=== PATIENT | male | born 1965 | race Caucasian/White ===

== ENCOUNTER 2017-08-11 10:25 | Observation (INO) | END 2017-08-12 10:25 | disposition home or self-care (01) ==

== ENCOUNTER 2018-03-22 16:02 | Emergency (ER) | END 2018-03-22 18:02 | disposition home or self-care (01) ==

== ENCOUNTER 2018-04-06 08:00 | Inpatient (IN) | payer OTHER ==
[2018-03-31 16:07] VITALS: BMI 36.1
[~2018-04-06] VITALS: Ht 170.2 cm; Wt 106.0 kg
[2018-04-06] VITALS (18 sets, daily range): BP systolic 106–133; BP diastolic 58–93; PULSE 78–109; RESP 15–22; Ht 170.2 cm; Wt 106.0 kg
--- NOTE | 2018-04-06 05:39 | HPN ---
Date/Time of Note Date/Time of Note DATE: 04/06/18 TIME: 05:39 Interval H&P Admission Note Pt. seen H&P reviewed: No system changes CLAUDETTE HICKEY MD Apr 06, 2018 05:39
--- NOTE | 2018-04-06 05:43 | OPR ---
Date/Time of Note Date/Time of Note DATE: 04/06/18 TIME: 05:40 Operative Report Procedure Date: Apr 06, 2018 Preoperative Diagnosis Infected right total shoulder Postoperative Diagnosis Infected right reverse total shoulder replacement Operation/Procedure Performed Revision of right reverse total shoulder replacement to hemiarthroplasty Surgeon see signature line Wagon Person Yevgeniy Singh DO Second Wagon Person: CAREN HUITRON PA-C Anesthesia Type: general Estimated Blood Loss: 150 - 200 ml's Transfusion none Specimen Multiple cultures obtained Grafts/Implants See body of op note Complications none Pt Condition Post Procedure: stable Disposition: PACU Procedure Description LABOR TRAINING MANAGER SURGEON: Yevgeniy Singh DO was asked to be present for this case at my request. Assistance was necessary as a result of the highly technical nature of this operation. When performing an open total shoulder replacement, it is critical to have a trained dental hygiene administrative assistant who is an expert in handling the extremity and assisting the surgeon in tasks such as manipulation of the arm, protection of the neurovascular structures and positioning the implants. This assistance cannot be performed by a plumbing service technician, as it is considered an integral part of the procedure and he should be compensated for their time. PROCEDURE IN DETAIL: Following the administration of general anesthesia supp lemented with a peripheral nerve block for postoperative pain control, the patient was examined under anesthesia. Examination of the right shoulder revealed severe significant swelling and edema around the incision. The prior small punctate area which had been draining was then explored. Significant purulent material was seen to emanate from the wound. The patient was then placed in the beach chair position. Sterile prep and drape was then undertaken. The prior deltopectoral incision was then carried through the interval exposing the conjoined tendon and retracting it medially. The components were intact. However, there was significant purulence throughout the wound. The humeral component was then removed using a combination of osteotomes and elevators. The humeral canal remained intact. The humerus was retracted and the glenoid was exposed . The glenoid component was then removed and an extensive debridement of the area undertaken. With regards to the remaining glenoid bone stock, is reasonable with no loosening. The humerus was then reamed and prepared for a hemiarthroplasty component which was fashioned using a small humeral component that was covered with antibiotic impregnated cement. Following cement hardening and positioning of the humeral component in approximately 30 degrees of retroversion the arm was taken through a range of motion and reasonable stability was noted. The joint was then thoroughly irrigated, the deep tissues were approximated using #1 suture followed by closure of the deep layer using 2-0 Monocryl. The skin was closed using 4-0 Monocryl suture, and a Prenio dressing. An Ultrasling was then applied. The patient was awakened and transported to the recovery room in stable condition. Estimated blood loss for this procedure was 200 cc. Radiographs will be obtained in the recovery room. CLAUDETTE HICKEY MD Apr 06, 2018 05:43
[~2018-04-06 08:00] MED LIST: BENA20TA4 PO; DESFLURANE 15 MIN ONE; DOXY100T21 PO; EPHEDrine SULFATE 50 MG/5 ML SYG ONE; HYDR25TA6 PO; MELO15TA30 PO; SIMV20TA PO
[2018-04-06] MEDS ORDERED: TRANEXAMIC ACID 1,000 MG in DEXTROSE 5% 100 ML IVPB ONE (09:00)
[2018-04-06] MEDS ORDERED: DEXAMETHASONE 1 MG TAB PO ONE (09:00)
[2018-04-06] MEDS ORDERED: BUPIVACAINE 0.5% (SDV) 30 ML, morphine SULFATE (PF) 8 MG, EPINEPHrine 0.3 MG, KETOROLAC... IRR SCH ×7 (09:00)
[2018-04-06] MEDS ORDERED: GABAPENTIN 300 MG CAP PO ONE (09:00)
[2018-04-06] MEDS ORDERED: VANCOMYCIN 1 GM (PMX) 250 ML IVPB ONE (09:00)
[2018-04-06] MEDS ORDERED: OMEP20CA16 PO (09:08)
[2018-04-06] MEDS ORDERED: LORA10TA3 PO (09:08)
[2018-04-06] MEDS: LACTATED RINGER'S 1,000 ML IV* SCH (09:46)
[2018-04-06] MEDS ORDERED: CEFAZOLIN 1 GM INJ ONE (10:15)
[2018-04-06] MEDS ORDERED: MIDAZOLAM 1 MG/ML 2 ML INJ ONE ×2 (10:15→10:16)
[2018-04-06] MEDS ORDERED: ROCURONIUM 50 MG INJ ONE (10:15)
[2018-04-06] MEDS ORDERED: PROPOFOL 20 ML ONE (10:15)
[2018-04-06] MEDS ORDERED: HYDROmorphONE 2 MG/ML SYG ONE (10:15)
[2018-04-06] MEDS ORDERED: ROPIVACAINE 0.5 % 30 ML VIAL ONE (10:16)
--- NOTE | 2018-04-06 11:06 | PREAC ---
Date/Time of Note Date/Time of Note DATE: 04/06/18 TIME: 11:03 Anesthesia Eval and Record Evaluation Time Pre-Procedure Interview DATE: 04/06/18 TIME: 11:03 Age 52 Sex male NPO: 8 hrs Preoperative diagnosis Right Shoulder Pain and mechanical complication s/p shoulder replacement Planned procedure Right Shoulder Revision of Reverse Total Shoulder with Possible conversion to Hemiarthroplasty Past Medical History Past Medical History: Includes Cardio: HTN, Dyslipidemia Pulm: Sleep Apnea, Other (uses CPAP at home) Musculoskeletal: Osteoarthritis GI: Obesity Surgery & Anesthesia Issues No known issue Meds Anticoagulation: No Beta Saran within 24 hr: No Reason Beta Saran not given: Pt. not on B-Saran Reported Medications Omeprazole* (Omeprazole*) 20 Mg Capsule.dr, 20 MG PO DAILY, #30 CAP 04/06/18 Loratadine* (Loratadine*) 10 Mg Tablet, 10 MG PO DAILY, #30 TAB 04/06/18 Simvastatin* (Zocor*) 20 Mg Tablet, 20 MG PO QHS, #30 TAB 08/11/17 Benazepril Hcl* (Benazepril Hcl*) 20 Mg Tablet, 20 MG PO DAILY, #30 TAB 08/11/17 Hydrochlorothiazide* (Hydrochlorothiazide*) 25 Mg Tab, 25 MG PO DAILY, #30 TAB 08/11/17 Discontinued Reported Medications Meloxicam* (Mobic*) 15 Mg Tablet, 15 MG PO DAILY, #30 TAB 08/11/17 Doxycycline Monohydrate* (Doxycycline Monohydrate*) 100 Mg Tablet, 100 MG PO BID, TAB STARTED 08-09-17 FOR 5 DAYS 08/11/17 Current Medications Bupivacaine HCl/ Morphine Sulfate/ Epinephrine/ Ketorolac Tromethamine/ Clonidine/Sodium Chloride/ Vancomycin HCl INTRA-OP IRR ; Start 04/06/18 at 09:00 Lactated Ringer's 1,000 ml @ 20 mls/hr Q24H IV* Last administered on 04/06/18at 09:46; Admin Dose 20 MLS/HR; Start 04/06/18 at 10:00; Stop 04/08/18 at 11:59 Meds reviewed: Yes Allergies Coded Allergies: Penicillins (Verified Allergy, Unknown, 04/06/18) Allergies Reviewed: Yes Labs/Studies Labs Reviewed: Reviewed by anesthesiologist test: N/A Studies: ECG (NSR), CXR (n/a) Pre-procedure Exam Last vitals Vital Signs Date Temp Pulse Resp B/P (MAP) Pulse Ox O2 O2 Flow FiO2 Time Delivery Rate 04/06/18 98.9 82 18 130/93 96 10:23 (105) Airway: Adequate mouth opening, Adequate thyromental dist Mallampati: Mallampati II Teeth: Normal Lung: Normal Heart: Normal ASA Physical Status ASA physical status: 3 Emergency: None Planned Anesthetic General/MAC: ETT Nerve block: Brachial plexus (right) Planned Pain Management Single shot nerve block, Parenteral pain med Pre-operative Attestations Prior to commencing anesthesia and surgery, the patient was re-evaluated, there was verification of: *The patient's identity *The results of appropriate recent lab work and preoperative vital signs *The above evaluation not changing prior to induction *Anesthetic plan, risk benefits, alternative and complications discussed with patient/family; questions answered; patient/family understands, accepts and wishes to proceed. KENNY MESA MD Apr 06, 2018 11:06
[2018-04-06] MEDS ORDERED: THROMBIN 5000 UNIT VIAL ONE (11:07)
[2018-04-06] MEDS ORDERED: BUPIVACAINE 0.5%/EPI (SDV) 30 ML INJ ONE (11:07)
[2018-04-06] MEDS ORDERED: POLYMYXIN/BACITRACIN 1L IRRIG ONE (11:07)
[2018-04-06] MEDS ORDERED: CA CHLORIDE 10% 10 ML SYRINGE ONE (11:07)
[2018-04-06] MEDS ORDERED: EPHEDrine SULFATE 50 MG/5 ML SYG IV PRN (11:30)
[2018-04-06] MEDS ORDERED: DIPHENHYDRAMINE 50 MG INJ IV PRN (11:30)
[2018-04-06] MEDS ORDERED: POLYMYXIN/BACITRACIN 1L IRRIG IRR ONE (11:30)
[2018-04-06] MEDS ORDERED: ONDANSETRON 4 MG INJ IV PRN ×2 (11:30→14:00)
[2018-04-06] MEDS ORDERED: LABETALOL HCL 20MG INJ IV PRN (11:30)
[2018-04-06] MEDS ORDERED: FENTAnyl 50 MCG/ML VIAL IV PRN ×3 (11:30)
[2018-04-06] MEDS ORDERED: METOCLOPRAMIDE 10 MG INJ IV PRN (11:30)
[2018-04-06] MEDS ORDERED: hydrALAzine 20 MG INJ IV PRN (11:30)
[2018-04-06] MEDS ORDERED: MEPERIDINE 25 MG INJ IV PRN (11:30)
[2018-04-06] MEDS ORDERED: HYDROmorphONE 1 MG/5 ML IV SYRINGE IV PRN ×3 (11:30)
[2018-04-06] MEDS ORDERED: OXYCODONE/ACETAMINOPHEN (5/325) TAB PO PRN ×2 (11:30)
[2018-04-06] MEDS ORDERED: METOCLOPRAMIDE 10 MG INJ ONE (12:11)
[2018-04-06] MEDS ORDERED: ONDANSETRON 4 MG INJ ONE (12:11)
[2018-04-06] MEDS ORDERED: DEXAMETHASONE 4 MG/ML 5 ML INJ ONE (12:11)
[2018-04-06] MEDS ORDERED: KETOROLAC 30 MG INJ ONE (12:12)
[2018-04-06] MEDS ORDERED: MINERAL OIL LIGHT 10 ML VIAL ONE (12:14)
[2018-04-06] MEDS ORDERED: PHENYLephrine (100 MCG/ML) 5ML SYG ONE (12:33)
[2018-04-06] MEDS ORDERED: VANCOMYCIN 1 GM INJ ONE (13:02)
[2018-04-06] MEDS ORDERED: NEOSTIGMINE 3 MG/3 ML SYRINGE ONE (13:55)
[2018-04-06] MEDS ORDERED: GLYCOPYRROLATE 0.4 MG INJ ONE (13:55)
[2018-04-06] MEDS ORDERED: HEPARIN (10 UNITS/ML) 5ML SYG IV ONE (14:00)
[2018-04-06] MEDS ORDERED: HYDROmorphONE 1 MG/ML SYG IV PRN (14:00)
[2018-04-06] MEDS ORDERED: TRANEXAMIC ACID 1,000 MG in SOD CHLORIDE 0.9% 100 ML IVPB SCH (14:00)
[2018-04-06] MEDS ORDERED: oxyCODONE 5 MG TAB PO PRN (14:00)
[2018-04-06] MEDS ORDERED: ZOLPIDEM 5 MG TAB PO PRN (14:00)
[2018-04-06] MEDS ORDERED: MAGNESIUM HYDROXIDE 30ML CUP PO PRN (14:00)
[2018-04-06] MEDS ORDERED: KETOROLAC 15 MG INJ IV PRN (14:00)
[2018-04-06] MEDS ORDERED: LOPERAMIDE 2 MG CAP PO PRN (14:00)
[2018-04-06] MEDS ORDERED: VANCOMYCIN 500 MG (PMX) 100 ML IVPB SCH ×2 (14:00→23:00)
[2018-04-06] MEDS ORDERED: NACL 0.9% 3 ML SYG IV SCH (14:00)
--- NOTE | 2018-04-06 14:08 | PAC ---
Date/Time of Note Date/Time of Note DATE: 04/06/18 TIME: 14:07 Post-Anesthesia Notes Post-Anesthesia Note Last documented vital signs Vital Signs Date Temp Pulse Resp B/P (MAP) Pulse Ox O2 O2 Flow FiO2 Time Delivery Rate 04/06/18 98.9 104 18 114/59 97 face mask 10 L 14:23 (75) Activity: WNL Respiratory function: WNL Cardiovascular function: WNL Mental status: Baseline Pain reasonably controlled: Yes Hydration appropriate: Yes Nausea/Vomiting absent: Yes KENNY MESA MD Apr 06, 2018 14:08
[2018-04-06] MEDS ORDERED: LIDOCAINE 1% (MPF) 5 ML VIAL SC ONE (17:30)
[2018-04-06] MEDS ORDERED: VANCOMYCIN IV PER PHARMACY XX SCH (18:00)
[2018-04-06] MEDS: DEXAMETHASONE 2 MG TAB PO SCH (18:25)
[2018-04-06] MEDS: ACETAMINOPHEN 500 MG TAB PO SCH (18:25)
[2018-04-06] MEDS: oxyCODONE 5 MG TAB PO PRN ×2 (18:47→23:11)
[2018-04-06] MEDS: MEROPENEM 1 GM/50ML(PMX) 50 ML IVPB SCH (20:33)
[2018-04-06] MEDS: SENNA/DOCUSATE NA (8.6MG/50MG) TAB PO SCH (20:38)
[2018-04-06] MEDS: ATORVASTATIN 10 MG TAB PO SCH (20:39)
[2018-04-06] MEDS: GABAPENTIN 300 MG CAP PO SCH (20:39)
[2018-04-06] MEDS ORDERED: NON-FORMULARY/PATIENT OWN MED (Simvastatin* (Zocor*) 20 MG) PO SCH (21:00)
--- NOTE | 2018-04-06 21:44 | CONS ---
DATE OF ADMISSION: 04/06/2018 DATE OF CONSULTATION: 04/06/2018 TYPE OF CONSULTATION: Infectious disease. REASON FOR CONSULTATION: Antibiotic management. HISTORY OF PRESENT ILLNESS: Shilo Cornelius is a very pleasant 52-year-old male, with a number of pro blems, who is being seen status post right shoulder surgery by Dr. Claudette Thomas. PAST PROBLEMS: Include: 1. Hypertension, on benazepril and hydrochlorothiazide. 2. Obesity, he is 5 feet 7 inches, 230 pounds. 3. Status post right hernia surgery repair. 4. Bilateral ear canaloplasties in 1985 and 2012. 5. Sleep apnea. 6. Hypercholesterolemia. 7. ALLERGY TO PENICILLIN. With regard to this problem, the patient had a right torn rotator cuff repair in [address] [facility]. On 08/11/2017 he had a shoulder replacement by Dr. Thomas. He was fine until 11/2017 when his r ight shoulder became infected. It was red, swollen, and he had fever. He was placed on 2 months of antibiotic therapy with oral Keflex. In the beginning of 03/2018, he started to have increasing pain and swelling and redness in the shoulder. He was placed on Keflex. On 03/22, he came into the [facility] room and an abscess was opened. It was cleaned and the patient was scheduled for surgery, I be lieve on 04/22; however, because of worsening of the shoulder he came in today. The patient had surg alex. He had a revision of right reverse total shoulder replacement and he had a spacer cement hemiar throplasty with vancomycin beads in place. The patient is currently resting comfortably. On admissi on, his white count was 14.2, H and H of 12.4 and 37.4, platelet count of 384,000 with 90% polys. PAST MEDICAL HISTORY: Operations as outlined. FAMILY HISTORY: He is and has no children. His mother is . Father is alive. He fry s 1 brother, 2 sisters. HABITS: He does not smoke, drink or abuse drugs. He has a pet cat at home. He eats sushi on occasi on. He was born in [place], [place]. No recent travel. 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 ALLERGIES: PENICILLIN. PHYSICAL EXAMINATION: GENERAL: He is a well-developed, well-nourished white male who is alert, responsive, in no acute dis tress. VITAL SIGNS: Stable. He is afebrile. SKIN: Without generalized rash. HEENT: Within normal limits. NECK: Supple. LYMPH NODES: None palpable. LUNGS: Clear to P and A. HEART: Without murmur or gallop. ABDOMEN: Soft, nontender, without organosplenomegaly or masses. EXTREMITIES: Without cyanosis, clubbing, or edema. His right shoulder has a new surgical wound and he is in a sling at this point. RECTAL: Deferred. GENITAL: Deferred. NEUROLOGIC: No focal neurological abnormalities. IMPRESSION AND PLAN: Shilo Cornelius is a 52-year-old male, who has an infected right shoulder. He h ad a hemiarthroplasty with cement spacer. He is currently on vancomycin. He will require vancomycin and meropenem. I spoke to Dr. Thomas and he had at least 3 cultures done, so we will be able to ho pefully tailor our antibiotics to his needs. I will dictate my findings to Dr. Thomas. Dictated By: TAMY AVILA MD, JD/NARDA Conf#: [id number] DID#: [id number] CC: CLAUDETTE THOMAS MD;*EndCC*
[2018-04-07] MEDS: ACETAMINOPHEN 500 MG TAB PO SCH ×4 (00:24→18:17)
[2018-04-07] MEDS: DEXAMETHASONE 2 MG TAB PO SCH ×3 (00:24→13:37)
[2018-04-07] MEDS: VANCOMYCIN 1.5 GM in SOD CHLORIDE 0.9% 250 ML IVPB SCH ×2 (00:25→13:37)
[2018-04-07 02:00] VITALS: BP 127/82; PULSE 80; RESP 18
[2018-04-07] MEDS: DIPHENHYDRAMINE 50 MG INJ IV PRN (04:04)
--- NOTE | 2018-04-07 05:52 | DS ---
Date/Time of Note Date/Time of Note DATE: 04/07/18 TIME: 05:51 Discharge Summary Admission/Discharge Info Admit Date/Time Apr 06, 2018 at 08:26 Discharge Date/Time April 07, 2018 following clearance by infectious disease Discharge Diagnosis Infected reverse total shoulder replacement Patient Condition: Good Hospital Course Patient was admitted and underwent a debridement of the infected device with removal and placement of hemiarthroplasty. A PICC line was placed for intravenous management and infectious disease consult was obtained. He was sent home for follow-up in 2 weeks. At home he will continue the intravenous antibiotics. Home Meds Reported Medications Omeprazole* (Omeprazole*) 20 Mg Capsule.dr, 20 MG PO DAILY, #30 CAP 04/06/18 Loratadine* (Loratadine*) 10 Mg Tablet, 10 MG PO DAILY, #30 TAB 04/06/18 Simvastatin* (Zocor*) 20 Mg Tablet, 20 MG PO QHS, #30 TAB 08/11/17 Benazepril Hcl* (Benazepril Hcl*) 20 Mg Tablet, 20 MG PO DAILY, #30 TAB 08/11/17 Hydrochlorothiazide* (Hydrochlorothiazide*) 25 Mg Tab, 25 MG PO DAILY, #30 TAB 08/11/17 Discontinued Reported Medications Meloxicam* (Mobic*) 15 Mg Tablet, 15 MG PO DAILY, #30 TAB 08/11/17 Doxycycline Monohydrate* (Doxycycline Monohydrate*) 100 Mg Tablet, 100 MG PO BID, TAB STARTED 08-09-17 FOR 5 DAYS 08/11/17 Primary Care Provider Not On Staff Doctor Pending Labs Laboratory Tests Test 04/06/18 16:52 White Blood Count 14.2 10^3/ul (4.8-10.8) Red Blood Count 4.46 10^6/ul (4.70-6.10) Hemoglobin 12.4 g/dl (14.0-18.0) Hematocrit 37.4 % (42.0-52.0) Mean Corpuscular Volume 83.9 fl (82.0-101.0) Mean Corpuscular Hemoglobin 27.8 pg (29.0-33.0) Mean Corpuscular Hemoglobin Concent 33.2 g/dl (32.0-37.0) Red Cell Distribution Width 14.2 % (11.5-14.5) Platelet Count 384 10^3/UL (140-415) Mean Platelet Volume 9.2 fl (7.4-10.4) Immature Granulocytes % 0.800 % (0.001-0.429) Neutrophils % 89.6 % (39.0-77.0) Lymphocytes % 8.0 % (15.0-51.0) Monocytes % 1.4 % (0.0-11.0) Eosinophils % 0.1 % (0.0-7.0) Basophils % 0.1 % (0.0-2.0) Nucleated Red Blood Cells % 0.0 /100WBC (0.0-0.0) Immature Granulocytes # 0.120 10^3/ul (0.0-0.031) Neutrophils # 12.7 10^3/ul (1.6-7.5) Lymphocytes # 1.1 10^3/ul (0.8-2.9) Monocytes # 0.2 10^3/ul (0.3-0.9) Eosinophils # 0.0 10^3/ul (0.0-0.5) Basophils # 0.0 10^3/ul (0.0-0.1) Nucleated Red Blood Cells # 0.0 10^3/ul (0.0-0.0) CLAUDETET HICKEY MD Apr 07, 2018 05:52
--- NOTE | 2018-04-07 05:53 | PN ---
Date/Time of Note Date/Time of Note DATE: 04/07/18 TIME: 05:52 Subjective Awake and alert with minimal pain. The procedure was explained to him in detail. Objective Vitals Vital Signs Date Temp Pulse Resp B/P (MAP) Pulse Ox O2 O2 Flow FiO2 Time Delivery Rate 04/07/18 98.2 80 18 127/82 97 Room Air 02:00 (97) 04/06/18 8.0 14:04 Intake and Output 04/06/18 04/06/18 04/07/18 1515:00 23:00 07:00 IntakeIntake Total 1110 ml OutputOutput Total 100 ml 700 ml BalanceBalance 1110 ml -100 ml -700 ml Wound is clean and dry. Neurologically intact. No signs of DVT. Results Result Diagram: 04/06/18 1652 Medications Medications Current Medications Lactated Ringer's 1,000 ml @ 20 mls/hr Q24H IV* Last administered on 04/06/18at 09:46; Admin Dose 20 MLS/HR; Start 04/06/18 at 10:00; Stop 04/08/18 at 11:59 Influenza Virus Vaccine Quadrival (Fluzone) 0.5 ml ONCE ONCE IM* ; Start 04/07/18 at 12:00; Stop 04/07/18 at 12:01 Benazepril HCl (Lotensin) 20 mg DAILY PO ; Start 04/07/18 at 09:00 Hydrochlorothiazide (Hydrochlorothiazide) 25 mg DAILY PO ; Start 04/07/18 at 09:00 Loratadine (Claritin) 10 mg DAILY PO ; Start 04/07/18 at 09:00 Senna/Docusate Sodium (Senokot-S) 1 tab BID PO Last administered on 04/06/18at 20:38; Admin Dose 1 TAB; Start 04/06/18 at 21:00 Simethicone (Mylicon) 80 mg TID PRN PO DISTENSION/GAS/BLOATING; Start 04/06/18 at 14:00 Magnesium Hydroxide (Milk Of Mag) 30 ml BID PRN PO CONSTIPATION; Start 04/06/18 at 14:00 Loperamide HCl (Imodium Cap) 2 mg Q6H PRN PO DIARRHEA; Start 04/06/18 at 14:00 Dexamethasone (Decadron) 2 mg Q6 PO Last administered on 04/07/18at 00:24; Admin Dose 2 MG; Start 04/06/18 at 18:00; Stop 04/07/18 at 12:01 Gabapentin (Neurontin) 300 mg HS PO Last administered on 04/06/18at 20:39; Admin Dose 300 MG; Start 04/06/18 at 21:00 Acetaminophen (Tylenol Tab) 500 mg Q6 PO Last administered on 04/07/18at 00:24; Admin Dose 500 MG; Start 04/06/18 at 18:00 Oxycodone HCl (Roxicodone) 15 mg Q4H PRN PO PAIN Last administered on 04/06/18at 23:11; Admin Dose 15 MG; Start 04/06/18 at 14:00 Oxycodone HCl (Roxicodone) 10 mg Q4H PRN PO PAIN Last administered on 04/06/18at 18:47; Admin Dose 10 MG; Start 04/06/18 at 14:00 Oxycodone HCl (Roxicodone) 5 mg Q4H PRN PO PAIN; Start 04/06/18 at 14:00 Hydromorphone HCl (Dilaudid) 1 mg Q4H PRN IV BREAKTHROUGH PAIN; Start 04/06/18 at 14:00 Ketorolac Tromethamine (Toradol) 15 mg Q6H PRN IV PAIN; Start 04/06/18 at 14:00 Ondansetron HCl (Zofran Inj) 4 mg Q6H PRN IV NAUSEA AND/OR VOMITING; Start 04/06/18 at 14:00 Diphenhydramine HCl (Benadryl) 25 mg Q6H PRN IV PRURITUS Last administered on at 04:04; Admin Dose 25 MG; Start 04/06/18 at 14:00 Zolpidem Tartrate (Ambien) 10 mg HS PRN PO INSOMNIA; Start 04/06/18 at 14:00 IV Flush (NS 3 ml) 3 ml per protocol IV ; Start 04/06/18 at 14:00 Pantoprazole (Protonix Tab) 40 mg DAILY@06 PO ; Start 04/07/18 at 06:00 Atorvastatin Calcium (Lipitor) 10 mg DAILY@21 PO Last administered on 04/06/18at 20:39; Admin Dose 10 MG; Start 04/06/18 at 21:00 Vancomycin HCl (Vanco Iv Per Pharmacy) VANCOMYCIN PER PHARMACY PER PROTOCOL XX ; Start 04/06/18 at 18:00 Meropenem/Sodium Chloride 50 ml @ 100 mls/hr Q12 IVPB Last administered on 04/06/18at 20:33; Admin Dose 100 MLS/HR; Start 04/06/18 at 21:00 Vancomycin HCl 1.5 gm/Sodium Chloride 250 ml @ 83.333 mls/ hr Q12H IVPB Last administered on 04/07/18at 00:25; Admin Dose 83.333 MLS/HR; Start 04/07/18 at 01:00 VTE Prophylaxis Risk score (from [facility])>0 risk: 10 SCD applied (from [facility]): Yes Lines/Catheters IV Catheter Type: PICC Line Central line still needed: Yes Card[place] in Place: No Assessment/Plan Hospital Course Patient was admitted and underwent a debridement of the infected device with removal and placement of hemiarthroplasty. A PICC line was placed for intravenous management and infectious disease consult was obtained. He was sent home for follow-up in 2 weeks. At home he will continue the intravenous antibiotics. Assessment/Plan Assessment: Status post infected reverse total shoulder removal Plan: He will begin his intravenous antibiotics at home and follow-up in the office in 2 weeks once he is cleared from the infectious disease perspective. CLAUDETTE HICKEY MD Apr 07, 2018 05:53
--- NOTE | 2018-04-07 05:58 | PDOCDIS ---
Discharge Instructions DIAGNOSIS Discharge Diagnosis Infected reverse total shoulder replacement CONDITION [id number] Patient Condition: [id number] Good HOME CARE INSTRUCTIONS: [id number] Diet Instructions: [id number] Regular ACTIVITY: [id number] Activity Restrictions: [id number] Slowly Increase Activity Keep Limb Elevated [id number] Bathing Restrictions: Eamcr4a Shower FOLLOW UP/APPOINTMENTS Follow-up Plan 2 weeks in the office SCHOOL/WORK RELEASE May return to School/Work with: With Restrictions School/Work Release Comment: 5 pound tabletop usage CLAUDETTE HICKEY MD Apr 07, 2018 05:58
[2018-04-07] MEDS: PANTOPRAZOLE (EC) 40 MG TAB PO SCH (06:09)
[2018-04-07 07:39] VITALS: BP 121/73; PULSE 89; RESP 20
[2018-04-07] MEDS ORDERED: NON-FORMULARY/PATIENT OWN MED (Omeprazole* 20 MG) PO SCH (09:00)
[2018-04-07] MEDS: LACTATED RINGER'S 1,000 ML IV* SCH (10:00)
[2018-04-07] MEDS: SENNA/DOCUSATE NA (8.6MG/50MG) TAB PO SCH ×3 (10:07→21:32)
[2018-04-07] MEDS: oxyCODONE 5 MG TAB PO PRN ×2 (10:07→19:25)
[2018-04-07] MEDS: MEROPENEM 1 GM/50ML(PMX) 50 ML IVPB SCH ×2 (10:07→21:32)
[2018-04-07] MEDS: BENAZEPRIL 20 MG TAB PO SCH (10:08)
[2018-04-07] MEDS: LORATADINE 10 MG TAB PO SCH (10:08)
[2018-04-07] MEDS: HYDROCHLOROTHIAZIDE 25 MG TAB PO SCH (10:09)
--- NOTE | 2018-04-07 14:41 | CONS ---
Date/Time of Note Date/Time of Note DATE: 04/07/18 TIME: 14:41 Assessment/Plan Assessment/Plan Hospital Course Patient is alert lying comfortably in bed no fevers overnight family at bedside no labs this morning intraoperative culture preliminary negative Physical examination obese well-developed middle-aged man who is awake in no distress. Head atraumatic normocephalic neck is supple chest rise symmetrical breath sounds clear. Heart: S1-S2. Abdomen soft bowel sounds present. Extremities without cyanosis. Right shoulder incision clean dry and intact Assessment: 1. Infected right shoulder status post revision of hemiarthroplasty with spacer placement, postop day #1 2. Hypertension 3. Obesity 4. Allergy: Penicillin Plan: Patient remains stable he will require 6 weeks of IV vancomycin and meropenem, he is scheduled for PICC placement today. Renal function needs to be closely monitored while on vancomycin. Discussed with patient and family at bedside. Discussed with Dr. Rios Result Diagram: 04/06/18 1652 Results 24hrs Laboratory Tests Test 04/06/18 16:52 04/07/18 07:29 White Blood Count 14.2 H Red Blood Count 4.46 L Hemoglobin 12.4 L Hematocrit 37.4 L Mean Corpuscular Volume 83.9 Mean Corpuscular Hemoglobin 27.8 L Mean Corpuscular Hemoglobin Concent 33.2 Red Cell Distribution Width 14.2 Platelet Count 384 Mean Platelet Volume 9.2 Immature Granulocytes % 0.800 H Neutrophils % 89.6 H Lymphocytes % 8.0 L Monocytes % 1.4 Eosinophils % 0.1 Basophils % 0.1 Nucleated Red Blood Cells % 0.0 Immature Granulocytes # 0.120 H Neutrophils # 12.7 H Lymphocytes # 1.1 Monocytes # 0.2 L Eosinophils # 0.0 Basophils # 0.0 Nucleated Red Blood Cells # 0.0 Lab Scanned Report REFERENCE LAB Consultation Date/Type/Reason Admit Date/Time Apr 06, 2018 at 08:26 Initial Consult Date Type of Consult id Exam/Review of Systems Vital Signs Vitals Vital Signs Date Temp Pulse Resp B/P (MAP) Pulse Ox O2 O2 Flow FiO2 Time Delivery Rate 04/07/18 98.8 89 20 121/73 93 Nasal 2.0 07:39 (89) Cannula Intake and Output 04/06/18 04/06/18 04/07/18 1515:00 23:00 07:00 IntakeIntake Total 1110 ml 230 ml 250 ml OutputOutput Total 100 ml 700 ml BalanceBalance 1110 ml 130 ml -450 ml Medications Medications Current Medications Lactated Ringer's 1,000 ml @ 20 mls/hr Q24H IV* Last administered on 04/06/18 09:46; Admin Dose 20 MLS/HR; Start 04/06/18 at 10:00; Stop 04/08/18 at 11:59 Benazepril HCl (Lotensin) 20 mg DAILY PO Last administered on 04/07/18 10:08; Admin Dose 20 MG; Start 04/07/18 at 09:00 Hydrochlorothiazide (Hydrochlorothiazide) 25 mg DAILY PO Last administered on 04/07/18 10:09; Admin Dose 25 MG; Start 04/07/18 at 09:00 Loratadine (Claritin) 10 mg DAILY PO Last administered on 04/07/18 10:08; Admin Dose 10 MG; Start 04/07/18 at 09:00 Senna/Docusate Sodium (Senokot-S) 1 tab BID PO Last administered on 04/07/18 10:07; Admin Dose 1 TAB; Start 04/06/18 at 21:00 Simethicone (Mylicon) 80 mg TID PRN PO DISTENSION/GAS/BLOATING; Start 04/06/18 at 14:00 Magnesium Hydroxide (Milk Of Mag) 30 ml BID PRN PO CONSTIPATION; Start 04/06/18 at 14:00 Loperamide HCl (Imodium Cap) 2 mg Q6H PRN PO DIARRHEA; Start 04/06/18 at 14:00 Gabapentin (Neurontin) 300 mg HS PO Last administered on 04/06/18 20:39; Admin Dose 300 MG; Start 04/06/18 at 21:00 Acetaminophen (Tylenol Tab) 500 mg Q6 PO Last administered on 04/07/18 13:37; Admin Dose 500 MG; Start 04/06/18 at 18:00 Oxycodone HCl (Roxicodone) 15 mg Q4H PRN PO PAIN Last administered on 04/07/18 10:07; Admin Dose 15 MG; Start 04/06/18 at 14:00 Oxycodone HCl (Roxicodone) 10 mg Q4H PRN PO PAIN Last administered on 1/3/19at 18:47; Admin Dose 10 MG; Start 04/06/18 at 14:00 Oxycodone HCl (Roxicodone) 5 mg Q4H PRN PO PAIN; Start 04/06/18 at 14:00 Hydromorphone HCl (Dilaudid) 1 mg Q4H PRN IV BREAKTHROUGH PAIN; Start 04/06/18 at 14:00 Ketorolac Tromethamine (Toradol) 15 mg Q6H PRN IV PAIN; Start 04/06/18 at 14:00 Ondansetron HCl (Zofran Inj) 4 mg Q6H PRN IV NAUSEA AND/OR VOMITING; Start 04/06/18 at 14:00 Diphenhydramine HCl (Benadryl) 25 mg Q6H PRN IV PRURITUS Last administered on 04/07/18at 04:04; Admin Dose 25 MG; Start 04/06/18 at 14:00 Zolpidem Tartrate (Ambien) 10 mg HS PRN PO INSOMNIA; Start 04/06/18 at 14:00 IV Flush (NS 3 ml) 3 ml per protocol IV ; Start 04/06/18 at 14:00 Pantoprazole (Protonix Tab) 40 mg DAILY@06 PO Last administered on 04/07/18at 06:09; Admin Dose 40 MG; Start 04/07/18 at 06:00 Atorvastatin Calcium (Lipitor) 10 mg DAILY@21 PO Last administered on 04/06/18at 20:39; Admin Dose 10 MG; Start 04/06/18 at 21:00 Vancomycin HCl (Vanco Iv Per Pharmacy) VANCOMYCIN PER PHARMACY PER PROTOCOL XX ; Start 04/06/18 at 18:00 Meropenem/Sodium Chloride 50 ml @ 100 mls/hr Q12 IVPB Last administered on 04/07/18at 10:07; Admin Dose 100 MLS/HR; Start 04/06/18 at 21:00 Vancomycin HCl 1.5 gm/Sodium Chloride 250 ml @ 83.333 mls/ hr Q12H IVPB Last administered on 04/07/18at 13:37; Admin Dose 83.333 MLS/HR; Start 04/07/18 at 01:00 Miscellaneous Information (*Rx Drug Level Order Reminder*) VANCO TR AT 0,000 ONCE ONCE XX ; Start 04/08/18 at 00:00; Stop 04/08/18 at 00:01 DANYEL COBIAN NP Apr 07, 2018 14:41
[2018-04-07 14:46] VITALS: BP 123/66; PULSE 97; RESP 20
[2018-04-07 19:15] VITALS: BP 131/74; PULSE 72; RESP 20
[2018-04-07] MEDS: GABAPENTIN 300 MG CAP PO SCH ×2 (21:00→21:32)
[2018-04-07] MEDS: ATORVASTATIN 10 MG TAB PO SCH ×2 (21:00→21:32)
[2018-04-08] MEDS: oxyCODONE 5 MG TAB PO PRN ×3 (01:48→11:29)
[2018-04-08] MEDS: DIPHENHYDRAMINE 50 MG INJ IV PRN (01:48)
[2018-04-08] MEDS: VANCOMYCIN 1.5 GM in SOD CHLORIDE 0.9% 250 ML IVPB SCH (01:48)
[2018-04-08 02:10] VITALS: BP 125/69; PULSE 76; RESP 20
[2018-04-08] MEDS: ACETAMINOPHEN 500 MG TAB PO SCH ×3 (06:00→12:47)
[2018-04-08] MEDS: PANTOPRAZOLE (EC) 40 MG TAB PO SCH (06:03)
[2018-04-08 08:23] VITALS: BP 123/69; PULSE 68; RESP 18
[2018-04-08] MEDS: SENNA/DOCUSATE NA (8.6MG/50MG) TAB PO SCH (08:30)
[2018-04-08] MEDS: MEROPENEM 1 GM/50ML(PMX) 50 ML IVPB SCH (08:30)
[2018-04-08] MEDS: LORATADINE 10 MG TAB PO SCH (08:30)
[2018-04-08] MEDS: HYDROCHLOROTHIAZIDE 25 MG TAB PO SCH (08:31)
[2018-04-08] MEDS: BENAZEPRIL 20 MG TAB PO SCH (08:31)
--- NOTE | 2018-04-08 09:23 | PN ---
Date/Time of Note Date/Time of Note DATE: 04/08/18 TIME: 09:22 Subjective Awake and alert. No pain. Objective Vitals Vital Signs Date Temp Pulse Resp B/P (MAP) Pulse Ox O2 O2 Flow FiO2 Time Delivery Rate 04/08/18 98.0 68 18 123/69 93 Room Air 08:23 (87) 04/07/18 2.0 07:39 Intake and Output 04/07/18 04/07/18 04/08/18 1515:00 23:00 07:00 IntakeIntake Total 50 ml 840 ml 930 ml OutputOutput Total 700 ml 400 ml 900 ml BalanceBalance -650 ml 440 ml 30 ml Wound is clean and dry. Neurologically intact. No signs of DVT. Results Result Diagram: 04/08/18 0438 04/08/18 0438 Medications Medications Current Medications Lactated Ringer's 1,000 ml @ 20 mls/hr Q24H IV* Last administered on 04/06/18at 09:46; Admin Dose 20 MLS/HR; Start 04/06/18 at 10:00; Stop 04/08/18 at 11:59 Benazepril HCl (Lotensin) 20 mg DAILY PO Last administered on 04/08/18at 08:31; Admin Dose 20 MG; Start 04/07/18 at 09:00 Hydrochlorothiazide (Hydrochlorothiazide) 25 mg DAILY PO Last administered on at 08:31; Admin Dose 25 MG; Start 04/07/18 at 09:00 Loratadine (Claritin) 10 mg DAILY PO Last administered on 04/08/18at 08:30; Admin Dose 10 MG; Start 04/07/18 at 09:00 Senna/Docusate Sodium (Senokot-S) 1 tab BID PO Last administered on 04/08/18at 08:30; Admin Dose 1 TAB; Start 04/06/18 at 21:00 Simethicone (Mylicon) 80 mg TID PRN PO DISTENSION/GAS/BLOATING; Start 04/06/18 at 14:00 Magnesium Hydroxide (Milk Of Mag) 30 ml BID PRN PO CONSTIPATION; Start 04/06/18 at 14:00 Loperamide HCl (Imodium Cap) 2 mg Q6H PRN PO DIARRHEA; Start 04/06/18 at 14:00 Gabapentin (Neurontin) 300 mg HS PO Last administered on 04/06/18at 20:39; Admin Dose 300 MG; Start 04/06/18 at 21:00 Acetaminophen (Tylenol Tab) 500 mg Q6 PO Last administered on 04/07/18at 18:17; Admin Dose 500 MG; Start 04/06/18 at 18:00 Oxycodone HCl (Roxicodone) 15 mg Q4H PRN PO PAIN Last administered on 04/07/18at 10:07; Admin Dose 15 MG; Start 04/06/18 at 14:00 Oxycodone HCl (Roxicodone) 10 mg Q4H PRN PO PAIN Last administered on 04/08/18at 06:34; Admin Dose 10 MG; Start 04/06/18 at 14:00 Oxycodone HCl (Roxicodone) 5 mg Q4H PRN PO PAIN; Start 04/06/18 at 14:00 Hydromorphone HCl (Dilaudid) 1 mg Q4H PRN IV BREAKTHROUGH PAIN; Start 04/06/18 a t 14:00 Ketorolac Tromethamine (Toradol) 15 mg Q6H PRN IV PAIN; Start 04/06/18 at 14:00 Ondansetron HCl (Zofran Inj) 4 mg Q6H PRN IV NAUSEA AND/OR VOMITING; Start 04/06/18 at 14:00 Diphenhydramine HCl (Benadryl) 25 mg Q6H PRN IV PRURITUS Last administered on 04/08/18at 01:48; Admin Dose 25 MG; Start 04/06/18 at 14:00 Zolpidem Tartrate (Ambien) 10 mg HS PRN PO INSOMNIA; Start 04/06/18 at 14:00 IV Flush (NS 3 ml) 3 ml per protocol IV ; Start 04/06/18 at 14:00 Pantoprazole (Protonix Tab) 40 mg DAILY@06 PO Last administered on 04/08/18at 06:03; Admin Dose 40 MG; Start 04/07/18 at 06:00 Atorvastatin Calcium (Lipitor) 10 mg DAILY@21 PO Last administered on 04/06/18at 20:39; Admin Dose 10 MG; Start 04/06/18 at 21:00 Vancomycin HCl (Vanco Iv Per Pharmacy) VANCOMYCIN PER PHARMACY PER PROTOCOL XX ; Start 04/06/18 at 18:00 Meropenem/Sodium Chloride 50 ml @ 100 mls/hr Q12 IVPB Last administered on 04/08/18at 08:30; Admin Dose 100 MLS/HR; Start 04/06/18 at 21:00 IV Flush (NS 10 ml) 10 ml PRN PRN IV FLUSH LINE; Start 04/07/18 at 18:30 Vancomycin HCl 1.25 gm/Sodium Chloride 250 ml @ 83.333 mls/ hr Q8H IVPB ; Start 04/08/18 at 09:30 VTE [place] [facility] [place]: 6 [place] [facility] [place] Lines/Catheters IV Catheter Type: Saline Lock Cardoso in Place: No Assessment/Plan Hospital Course Patient was admitted and underwent a debridement of the infected device with removal and placement of hemiarthroplasty. A PICC line was placed for intrav enous management and infectious disease consult was obtained. He was sent home for follow-up in 2 weeks. At home he will continue the intravenous antibiotics. Assessment/Plan Assessment: Status post infected total shoulder Plan: Discharge home once PICC line is stable and vancomycin peak and trough are managed. CLAUDETTE HICKEY MD Apr 08, 2018 09:23
[2018-04-08] MEDS ORDERED: VANCOMYCIN 1.25 GM in SOD CHLORIDE 0.9% 250 ML IVPB SCH (09:30)
[2018-04-08] MEDS: LACTATED RINGER'S 1,000 ML IV* SCH (14:00)
--- NOTE | 2018-04-08 20:26 | CONS ---
Date/Time of Note Date/Time of Note DATE: 04/08/18 TIME: 20:25 Assessment/Plan Assessment/Plan Hospital Course 1235 Patient is alert, feels good, no fevers Physical examination obese well-developed middle-aged man who is awake in no distress. Head atraumatic normocephalic neck is supple chest rise symmetrical breath sounds clear. Heart: S1-S2. Abdomen soft bowel sounds present. Extremities without cyanosis. Right shoulder incision clean dry and intact Assessment: 1. 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 Hypertension 3. Obesity 4. Allergy: Penicillin Plan: Patient remains, pending dc home on current abx to complete 6 weeks, f/u with ortho OP, may see dr Blanca gonzáles in the office Discussed with patient and family at bedside. Result Diagram: 04/08/18 0438 04/08/18 0438 Results 24hrs Laboratory Tests Test 04/08/18 00:32 04/08/18 04:38 Blood Urea Nitrogen 21 H 21 H Creatinine 0.94 0.95 Vancomycin Level Trough 8.3 L White Blood Count 16.0 H Red Blood Count 3.64 L Hemoglobin 10.1 L Hematocrit 31.5 L Mean Corpuscular Volume 86.5 Mean Corpuscular Hemoglobin 27.7 L Mean Corpuscular Hemoglobin Concent 32.1 Red Cell Distribution Width 14.6 H Platelet Count 354 Mean Platelet Volume 9.6 Immature Granulocytes % 0.800 H Neutrophils % 72.4 Lymphocytes % 15.5 Monocytes % 11.2 H Eosinophils % 0.0 Basophils % 0.1 Nucleated Red Blood Cells % 0.0 Immature Granulocytes # 0.120 H Neutrophils # 11.6 H Lymphocytes # 2.5 Monocytes # 1.8 H Eosinophils # 0.0 Basophils # 0.0 Nucleated Red Blood Cells # 0.0 Sodium Level 141 Potassium Level 4.2 Chloride Level 106 Carbon Dioxide Level 27 Anion Gap 8 Est Glomerular Filtrat Rate mL/min > 60 Glucose Level 118 Calcium Level 9.1 Consultation Date/Type/Reason Admit Date/Time Apr 06, 2018 at 08:26 Initial Consult Date Type of Consult id Exam/Review of Systems Vital Signs Vitals Vital Signs Date Temp Pulse Resp B/P (MAP) Pulse Ox O2 O2 Flow FiO2 Time Delivery Rate 04/08/18 98.0 68 18 123/69 93 Room Air 08:23 (87) 04/07/18 2.0 07:39 Intake and Output 04/07/18 04/07/18 04/08/18 1515:00 23:00 07:00 IntakeIntake Total 50 ml 840 ml 930 ml OutputOutput Total 700 ml 400 ml 900 ml BalanceBalance -650 ml 440 ml 30 ml DANYEL COBIAN NP Apr 08, 2018 20:26
== END 2018-04-08 15:10 | disposition home health service (06) | DRG 483 ==
LOC: EDSTATUS 08:00 → REC 08:26 → MS1 15:29
PROVIDERS: ADMIT Orthopaedic Surgery; ATTEND Orthopaedic Surgery
PROC: 0RPJ0JZ Removal of Synthetic Substitute from Right Shoulder Joint, Open Approach (ICD-10-PCS; 2018-04-06)
PROC: 0RRJ0J6 Replacement of Right Shoulder Joint with Synthetic Substitute, Humeral Surface, Open Approach (ICD-10-PCS; principal; 2018-04-06 10:30)
PROC: 02HV33Z Insertion of Infusion Device into Superior Vena Cava, Percutaneous Approach (ICD-10-PCS; 2018-04-07)
PROC: B54NZZA Ultrasonography of Left Upper Extremity Veins, Guidance (ICD-10-PCS; 2018-04-07)
DX: T84.59XA Infection and inflammatory reaction due to other internal joint prosthesis, initial encounter (principal); T84.84XA Pain due to internal orthopedic prosthetic devices, implants and grafts, initial encounter; I10 Essential (primary) hypertension; E78.2 Mixed hyperlipidemia; E66.9 Obesity, unspecified; Z68.36 Body mass index [BMI] 36.0-36.9, adult; Z96.611 Presence of right artificial shoulder joint; Z88.0 Allergy status to penicillin; Y83.8 Other surgical procedures as the cause of abnormal reaction of the patient, or of later complication, without mention of misadventure at the time of the procedure
CPT/HCPCS: 36569; 71045; 76937; 80048; 80202; 82565; 84520; 85025; 87070; 87102; 87116; 88300; 88304; C1713; C1769; J0171; J0690; J0735; J1100; J1170; J1200; J1642; J1885; J2185; J2250; J2274; J2370; J2405; J2710; J2765; J2795; J3370; J7050; J7120

== ENCOUNTER 2018-07-11 06:12 | Inpatient (IN) | payer OTHER ==
[2018-07-04 16:47] VITALS: BMI 37.7
[2018-07-11] VITALS (30 sets, daily range): BP systolic 94–168; BP diastolic 56–94; PULSE 74–105; RESP 17–26; Ht 170.2 cm; Wt 105.8 kg
[~2018-07-11] VITALS: Ht 170.2 cm; Wt 105.8 kg
--- NOTE | 2018-07-11 06:00 | HPN ---
Date/Time of Note Date/Time of Note DATE: 07/11/18 TIME: 06:00 Interval H&P Admission Note Pt. seen H&P reviewed: No system changes CLAUDETTE HICKEY MD Jul 11, 2018 06:00
--- NOTE | 2018-07-11 06:07 | OPR ---
Date/Time of Note Date/Time of Note DATE: 07/11/18 TIME: 06:00 Operative Report Procedure Date: Jul 11, 2018 Preoperative Diagnosis Status post infected right total shoulder Postoperative Diagnosis 1. Status post infected right total shoulder with removal 2. Status post intravenous treatment for infected total shoulder replacement Operation/Procedure Performed 1. Revision of hemiarthroplasty to reverse total shoulder replacement 2. Injection of PRP solution in intramedullary canal of humerus Surgeon see signature line Embedded Linux Developer Chema Alfonso PA-C Anesthesia Type: general Estimated Blood Loss: 150 - 200 ml's Transfusion none Specimen None Grafts/Implants See operative note Complications none Pt Condition Post Procedure: stable Disposition: PACU Procedure Description MANDREL PULLER SURGEON: Chema Alfonso PA-C was asked to be present for this case at my request. Assistance was necessary as a result of the highly technical nature of this operation. When performing an open total shoulder replacement, it is critical to have a trained farm assistant who is an expert in handling the extremity and assisting the surgeon in tasks such as suture management and knot-tying techniques as well as implants. This assistance cannot be performed by a audio visual technician, as it is considered an integral part of the procedure and the farm assistant should be compensated for his time. PROCEDURE IN DETAIL: Following the administration of general anesthesia supplemented with a peripheral nerve block for postoperative pain control, the patient was examined under anesthesia. Examination of the right shoulder revealed that the prior wound was well-healed with no warmth or erythema. There is moderate crepitus. His passive motion was limited. The right antecubital fossa was then sterilely prepped and 60 cc of blood were withdrawn from the antecubital fossa. The venous blood was then transferred to the screening representative from the company who prepared the PRP solution. The patient was then placed in the beach chair position. Sterile prep and drape was then undertaken. An extended deltopectoral incision was then carried through the interval exposing the prior hemiarthroplasty device that had been implanted. The humeral component was then removed relatively atraumatically with the cement that had been previously placed within the humeral canal. Attention was then directed to the glenoid.and prepared for implantation of the new device. No purulence was noted. It should be noted that a culture was obtained including soft tissue. A superficial debridement of the area was then undertaken. The glenoid was then prepared for a standard Depuy component, which was implanted after irrigation and placement of 3 cc of the PRP solution in the glenoid vault. The glenoid was then fixed with four solid screws. A 42 mm glenosphere was then appl;ied with solid fixation. Attention was then directed to the humeral shaft, where it was prepared for a long stem Depuy reverse component. The final device was a 10 mm, 183 mm standard reverse component with a 9 mm liner. The humeral canal was then irrigated and the remaining PRP solution was infiltrated in the canal. The the actual components were implanted with solid fixation. The arm was taken through full range of motion with no evident ins tability. The joint was then thoroughly irrigated, the deep tissues were approximated using #1 suture followed by closure of the deep layer using 2-0 Monocryl. The skin was closed using 4-0 Monocryl suture, and a Prenio dressing. An Ultrasling was then applied. The patient was awakened and transported to the recovery room in stable condition. Estimated blood loss for this procedure was 150 cc. Radiographs will be obtained in the recovery room. CLAUDETTE HICKEY MD Jul 11, 2018 06:07
[~2018-07-11 06:12] MED LIST changes: +BUPIVACAINE 0.5% (SDV) 30 ML, morphine SULFATE (PF) 8 MG, EPINEPHrine 0.3 MG, KETOROLAC... IRR SCH; -DESFLURANE 15 MIN ONE; +DEXAMETHASONE 1 MG TAB PO ONE; -DOXY100T21 PO; -EPHEDrine SULFATE 50 MG/5 ML SYG ONE; +GABAPENTIN 300 MG CAP PO ONE; +LORA10TA3 PO; -MELO15TA30 PO; +TRANEXAMIC ACID 1GM/100ML(PMX) 100 ML IVPB ONE; +VANCOMYCIN 1 GM (PMX) 250 ML IVPB ONE
--- NOTE | 2018-07-11 06:56 | PREAC ---
Date/Time of Note Date/Time of Note DATE: 07/11/18 TIME: 06:54 Anesthesia Eval and Record Evaluation Time Pre-Procedure Interview DATE: 07/11/18 TIME: 06:54 Age 52 Sex male NPO: 8 hrs Preoperative diagnosis mechanical complication of internal fixation device right shoulder Planned procedure revision hemiarth. to reverse total shoulder arthroplasty right shoulder Past Medical History Past Medical History: Includes Cardio: HTN, Dyslipidemia Pulm: Sleep Apnea GI: Obesity Surgery & Anesthesia Issues No known issue Meds Anticoagulation: No Beta Saran within 24 hr: No Reason Beta Saran not given: Pt. not on B-Saran Reported Medications Loratadine* (Loratadine*) 10 Mg Tablet, 10 MG PO DAILY, #30 TAB 04/06/18 Simvastatin* (Zocor*) 20 Mg Tablet, 20 MG PO QHS, #30 TAB 08/11/17 Benazepril Hcl* (Benazepril Hcl*) 20 Mg Tablet, 20 MG PO DAILY, #30 TAB 08/11/17 Hydrochlorothiazide* (Hydrochlorothiazide*) 25 Mg Tab, 25 MG PO DAILY, #30 TAB 08/11/17 Current Medications Vancomycin HCl 250 ml @ 250 mls/hr PRE-OP ONCE IVPB Last administered on 07/11/18at 06:32; Admin Dose 250 MLS/HR; Start 07/11/18 at 06:00; Stop 07/11/18 at 06:59 Bupivacaine HCl/ Morphine Sulfate/ Epinephrine/ Ketorolac Tromethamine/ Clonidine/Sodium Chloride/ Vancomycin HCl INTRA-OP IRR ; Start 07/11/18 at 06:00; Stop 07/11/18 at 18:00 Meds reviewed: Yes Allergies Coded Allergies: Penicillins (Verified Allergy, Unknown, 05/08/18) Allergies Reviewed: Yes Labs/Studies Labs Reviewed: Reviewed by anesthesiologist test: N/A Studies: ECG (nl), CXR (napd) Pre-procedure Exam Last vitals Vital Signs Date Temp Pulse Resp B/P (MAP) Pulse Ox O2 O2 Flow FiO2 Time Delivery Rate 07/11/18 98.4 94 18 112/94 96 06:47 (100) Airway: Adequate mouth opening, Adequate thyromental dist Mallampati: Mallampati II Teeth: Normal Lung: Normal Heart: Normal ASA Physical Status ASA physical status: 2 Emergency: None Planned Anesthetic General/MAC: ETT Nerve block: Brachial plexus (right) Planned Pain Management Single shot nerve block, Parenteral pain med Pre-operative Attestations Prior to commencing anesthesia and surgery, the patient was re-evaluated, there was verification of: *The patient's identity *The results of appropriate recent lab work and preoperative vital signs *The above evaluation not changing prior to induction *Anesthetic plan, risk benefits, alternative and complications discussed with patient/family; questions answered; patient/family understands, accepts and wishes to proceed. Ty Hardy M.D. Jul 11, 2018 06:56
[2018-07-11] MEDS ORDERED: MIDAZOLAM 1 MG/ML 2 ML INJ ONE (06:59)
[2018-07-11] MEDS ORDERED: GLYCOPYRROLATE 0.4 MG INJ ONE (06:59)
[2018-07-11] MEDS ORDERED: DEXAMETHASONE 4 MG/ML 5 ML INJ ONE (06:59)
[2018-07-11] MEDS ORDERED: ONDANSETRON 4 MG INJ ONE (06:59)
[2018-07-11] MEDS ORDERED: FENTAnyl 50 MCG/ML VIAL ONE (06:59)
[2018-07-11] MEDS ORDERED: CEFAZOLIN 1 GM INJ ONE (06:59)
[2018-07-11] MEDS ORDERED: NEOSTIGMINE 3 MG/3 ML SYRINGE ONE (06:59)
[2018-07-11] MEDS ORDERED: ROCURONIUM 50 MG INJ ONE (06:59)
[2018-07-11] MEDS ORDERED: PROPOFOL 20 ML ONE (06:59)
[2018-07-11] MEDS ORDERED: MEPERIDINE 25 MG INJ IV PRN (07:00)
[2018-07-11] MEDS ORDERED: DIPHENHYDRAMINE 50 MG INJ IV PRN ×2 (07:00→08:30)
[2018-07-11] MEDS ORDERED: hydrALAzine 20 MG INJ IV PRN (07:00)
[2018-07-11] MEDS ORDERED: ONDANSETRON 4 MG INJ IV PRN ×2 (07:00→08:30)
[2018-07-11] MEDS ORDERED: MIDAZOLAM 1 MG/ML 2 ML INJ IV PRN (07:00)
[2018-07-11] MEDS ORDERED: OXYCODONE/ACETAMINOPHEN (5/325) TAB PO PRN ×2 (07:00)
[2018-07-11] MEDS ORDERED: LABETALOL HCL 20MG INJ IV PRN (07:00)
[2018-07-11] MEDS ORDERED: HYDROmorphONE 1 MG/5 ML IV SYRINGE IV PRN ×3 (07:00)
[2018-07-11] MEDS ORDERED: EPHEDrine SULFATE 50 MG/5 ML SYG IV PRN (07:00)
[2018-07-11] MEDS ORDERED: FENTAnyl 50 MCG/ML VIAL IV PRN ×3 (07:00)
[2018-07-11] MEDS ORDERED: IPRATROPIUM (NEB) 0.5 MG/2.5 ML AMP HHN PRN (07:00)
[2018-07-11] MEDS ORDERED: TRIMETHOBENZAMIDE 100 MG/ML VIAL IM PRN (07:00)
[2018-07-11] MEDS ORDERED: ALBUTEROL 0.083% (NEB) 2.5 MG/3 ML AMP HHN PRN (07:00)
[2018-07-11] MEDS ORDERED: ROPIVACAINE 0.5 % 30 ML VIAL ONE (07:02)
[2018-07-11] MEDS ORDERED: CA CHLORIDE (GM) 10% 10 ML INJ ONE (07:15)
[2018-07-11] MEDS ORDERED: THROMBIN (BOVINE) 5,000 UNIT VIAL TP ONE (07:15)
[2018-07-11] MEDS ORDERED: POLYMYXIN/BACITRACIN 1L IRRIG ONE (07:15)
[2018-07-11] MEDS ORDERED: BUPIVACAINE 0.5%/EPI (SDV) 30 ML INJ ONE (07:16)
[2018-07-11] MEDS ORDERED: TRANEXAMIC ACID 1GM/100ML(PMX) 100 ML ONE (07:16)
[2018-07-11] MEDS ORDERED: ACYC15OI6 TOP (07:17)
[2018-07-11] MEDS ORDERED: CLOT30CR35 TOP (07:17)
[2018-07-11] MEDS ORDERED: FLUT9.9S NASAL (07:17)
[2018-07-11] MEDS ORDERED: VALA500T PO (07:17)
[2018-07-11] MEDS ORDERED: CYCL5TAB PO (07:17)
[2018-07-11] MEDS ORDERED: OMEP20CA16 PO (07:17)
[2018-07-11] MEDS ORDERED: CARB15DR50 BOTH EARS (07:20)
[2018-07-11] MEDS ORDERED: DOXY100T21 PO (07:20)
[2018-07-11] MEDS ORDERED: NAPR-688 PO (07:20)
[2018-07-11] MEDS ORDERED: HC.5O30 TOP (07:21)
[2018-07-11] MEDS ORDERED: VANCOMYCIN 1 GM INJ ONE (08:14)
[2018-07-11] MEDS ORDERED: SUGAMMADEX SODIUM 200 MG/2 ML VIAL IV ONE (08:29)
[2018-07-11] MEDS ORDERED: ZOLPIDEM 5 MG TAB PO PRN (08:30)
[2018-07-11] MEDS ORDERED: HYDROmorphONE 1 MG/ML SYG IV PRN (08:30)
[2018-07-11] MEDS ORDERED: KETOROLAC 15 MG INJ IV PRN (08:30)
[2018-07-11] MEDS ORDERED: HYDROCORTISONE 0.5% 28.35 GM OINT TOP PRN (08:30)
[2018-07-11] MEDS ORDERED: VANCOMYCIN 500 MG (PMX) 100 ML IVPB SCH (08:30)
[2018-07-11] MEDS ORDERED: CYCLOBENZAPRINE 10 MG TAB PO PRN (08:30)
[2018-07-11] MEDS ORDERED: LOPERAMIDE 2 MG CAP PO PRN (08:30)
[2018-07-11] MEDS ORDERED: oxyCODONE 5 MG TAB PO PRN ×3 (08:30)
[2018-07-11] MEDS ORDERED: NACL 0.9% 3 ML SYG IV SCH (08:30)
[2018-07-11] MEDS ORDERED: MAGNESIUM HYDROXIDE 30ML CUP PO PRN (08:30)
[2018-07-11] MEDS ORDERED: TRANEXAMIC ACID 1GM/100ML(PMX) 100 ML IVPB ONE (08:30)
--- NOTE | 2018-07-11 08:32 | PDOCDIS ---
Discharge Instructions DIAGNOSIS Discharge Diagnosis Reverse total shoulder replacement status post infection CONDITION [id number] Patient Condition: [id number] Good HOME CARE INSTRUCTIONS: [id number] Diet Instructions: [id number] Regular ACTIVITY: [id number] Activity Restrictions: [id number] Rest between Activity Keep Limb Elevated [id number] Bathing Restrictions: Lutyd4m Shower FOLLOW UP/APPOINTMENTS Follow-up Plan 2 weeks in the office SCHOOL/WORK RELEASE May return to School/Work with: With Restrictions School/Work Release Comment: 5 pound tabletop usage for 6 weeks CLAUDETTE HICKEY MD Jul 11, 2018 08:32
[2018-07-11] MEDS: CARBAMIDE PEROXIDE 6.5% 15ML OTIC BOTH EARS SCH ×2 (09:00→21:00)
[2018-07-11] MEDS: LORATADINE 10 MG TAB PO SCH (09:00)
[2018-07-11] MEDS: FLUTICASONE 0.05% 16 GM NAS SPRAY NASAL SCH (09:00)
--- NOTE | 2018-07-11 10:25 | PAC ---
Date/Time of Note Date/Time of Note DATE: 07/11/18 TIME: 10:25 Post-Anesthesia Notes Post-Anesthesia Note Last documented vital signs Vital Signs Date Temp Pulse Resp B/P (MAP) Pulse Ox O2 O2 Flow FiO2 Time Delivery Rate 07/11/18 78 21 110/74 95 10:07 (86) 07/11/18 Nasal 2.0 09:57 Cannula 07/11/18 99.0 09:48 Activity: WNL Respiratory function: WNL Cardiovascular function: WNL Mental status: Baseline Pain reasonably controlled: Yes Hydration appropriate: Yes Nausea/Vomiting absent: Yes Ty Hardy M.D. Jul 11, 2018 10:25
[2018-07-11] MEDS: valACYclovir 500 MG TAB PO SCH ×2 (11:59→21:35)
[2018-07-11] MEDS: HYDROCHLOROTHIAZIDE 25 MG TAB PO SCH (11:59)
[2018-07-11] MEDS: SENNA/DOCUSATE NA (8.6MG/50MG) TAB PO SCH ×2 (11:59→21:35)
[2018-07-11] MEDS: BENAZEPRIL 20 MG TAB PO SCH (11:59)
[2018-07-11] MEDS: CLOTRIMAZOLE 1% 30 GM CR TOP SCH ×2 (12:00→21:00)
[2018-07-11] MEDS: ACETAMINOPHEN 500 MG TAB PO SCH ×2 (13:35→18:10)
[2018-07-11] MEDS: DEXAMETHASONE 2 MG TAB PO SCH ×2 (13:35→18:10)
[2018-07-11] MEDS: PANTOPRAZOLE (EC) 40 MG TAB PO SCH (18:10)
[2018-07-11] MEDS: VANCOMYCIN 500 MG (PMX) 100 ML IVPB SCH (18:11)
[2018-07-11] MEDS ORDERED: GABAPENTIN 300 MG CAP PO SCH (21:00)
[2018-07-11] MEDS ORDERED: ATORVASTATIN 10 MG TAB PO SCH (21:00)
[2018-07-12] MEDS: ACETAMINOPHEN 500 MG TAB PO SCH ×3 (00:09→12:15)
[2018-07-12] MEDS: DEXAMETHASONE 2 MG TAB PO SCH ×2 (00:09→05:23)
[2018-07-12 02:18] VITALS: BP 122/69; PULSE 93; RESP 18
[2018-07-12] MEDS: VANCOMYCIN 500 MG (PMX) 100 ML IVPB SCH (05:22)
[2018-07-12] MEDS: PANTOPRAZOLE (EC) 40 MG TAB PO SCH (05:23)
[2018-07-12 07:20] VITALS: BP 120/64; PULSE 79; RESP 20
[2018-07-12] MEDS: SENNA/DOCUSATE NA (8.6MG/50MG) TAB PO SCH (08:48)
[2018-07-12] MEDS: HYDROCHLOROTHIAZIDE 25 MG TAB PO SCH (08:49)
[2018-07-12] MEDS: LORATADINE 10 MG TAB PO SCH (08:49)
[2018-07-12] MEDS: BENAZEPRIL 20 MG TAB PO SCH (08:49)
[2018-07-12] MEDS: valACYclovir 500 MG TAB PO SCH (08:50)
[2018-07-12] MEDS: CARBAMIDE PEROXIDE 6.5% 15ML OTIC BOTH EARS SCH (08:50)
[2018-07-12] MEDS: FLUTICASONE 0.05% 16 GM NAS SPRAY NASAL SCH (08:50)
[2018-07-12] MEDS: CLOTRIMAZOLE 1% 30 GM CR TOP SCH (08:51)
--- NOTE | 2018-07-12 17:08 | PN ---
Date/Time of Note Date/Time of Note DATE: 07/12/18 TIME: 17:05 Subjective Doing well. Took Tylenol, states block wore off and is doing well and happy with wrist/elbow motion. Objective Vitals Vital Signs Date Temp Pulse Resp B/P (MAP) Pulse Ox O2 O2 Flow FiO2 Time Delivery Rate 07/12/18 98.4 79 20 120/64 91 07:20 (82) 07/11/18 Nasal 2.0 20:10 Cannula Intake and Output 07/11/18 07/11/18 07/12/18 1515:00 23:00 07:00 IntakeIntake Total 1400 ml 1425 ml 525 ml OutputOutput Total 25 ml 400 ml 300 ml BalanceBalance 1375 ml 1025 ml 225 ml PT AAOx3. Sitting comfortably in no distress. Wound is dry without erythema/edema. Prineo dressing on well. Neurologically intact distally with no loss of sensation to light touch. Medications Medications Current Medications Benazepril HCl (Lotensin) 20 mg DAILY PO Last administered on 07/12/18at 08:49; Admin Dose 20 MG; Start 07/11/18 at 09:00 Carbamide Peroxide (Debrox Otic) 10 drop BID BOTH EARS ; Start 07/11/18 at 09:00 Clotrimazole (Lotrimin Cr) 1 applic BID TOP ; Start 07/11/18 at 09:00 Cyclobenzaprine HCl (Flexeril) 5 mg DAILY PRN PO MUSCLE SPASMS Last administered on 07/12/18at 02:07; Admin Dose 5 MG; Start 07/11/18 at 08:30 Fluticasone Propionate (Flonase 0.05% Nasal) 1 spray DAILY NASAL ; Start 07/11/18 at 09:00 Hydrochlorothiazide (Hydrochlorothiazide) 25 mg DAILY PO Last administered on 07/12/18at 08:49; Admin Dose 25 MG; Start 07/11/18 at 09:00 Hydrocortisone (Hydrocortisone 0.5% Oint) 1 applic QID PRN TOP ITCHING; Start 07/11/18 at 08:30 Loratadine (Claritin) 10 mg DAILY PO Last administered on 07/12/18at 08:49; Admin Dose 10 MG; Start 07/11/18 at 09:00 Valacyclovir HCl (Valtrex) 500 mg BID PO Last administered on 07/11/18 21:35; Admin Dose 500 MG; Start 07/11/18 at 09:00 Pantoprazole (Protonix Tab) 40 mg BID@0600,1800 PO Last administered on 07/12/18 05:23; Admin Dose 40 MG; Start 07/11/18 at 18:00 Atorvastatin Calcium (Lipitor) 10 mg DAILY@21 PO Last administered on 07/11/18 21:35; Admin Dose 10 MG; Start 07/11/18 at 21:00 Senna/Docusate Sodium (Senokot-S) 1 tab BID PO Last administered on 07/12/18 08:48; Admin Dose 1 TAB; Start 07/11/18 at 09:00 Simethicone (Mylicon) 80 mg TID PRN PO .GAS; Start 07/11/18 at 08:30 Magnesium Hydroxide (Milk Of Mag) 30 ml BID PRN PO .CONSTIPATION; Start 07/11/18 at 08:30 Loperamide HCl (Imodium Cap) 2 mg Q6H PRN PO .DIARRHEA; Start 07/11/18 at 08:30 Gabapentin (Neurontin) 300 mg HS PO Last administered on 07/11/18 21:35; Admin Dose 300 MG; Start 07/11/18 at 21:00 Acetaminophen (Tylenol Tab) 500 mg Q6 PO Last administered on 07/12/18at 12:15; Admin Dose 500 MG; Start 07/11/18 at 12:45 Oxycodone HCl (Roxicodone) 15 mg Q4H PRN PO .PAIN; Start 07/11/18 at 08:30 Oxycodone HCl (Roxicodone) 10 mg Q4H PRN PO .PAIN; Start 07/11/18 at 08:30 Oxycodone HCl (Roxicodone) 5 mg Q4H PRN PO .PAIN Last administered on 07/12/18 08:53; Admin Dose 5 MG; Start 07/11/18 at 08:30 Hydromorphone HCl (Dilaudid) 1 mg Q4H PRN IV .BREAKTHROUGH PAIN; Start 07/11/18 at 08:30 Ketorolac Tromethamine (Toradol) 15 mg Q6H PRN IV .PAIN; Start 07/11/18 at 08:30 Ondansetron HCl (Zofran Inj) 4 mg Q6H PRN IV NAUSEA/VOMITING; Start 07/11/18 at 08:30 Diphenhydramine HCl (Benadryl) 25 mg Q6H PRN IV .PRURITUS; Start 07/11/18 at 08:30 Zolpidem Tartrate (Ambien) 10 mg HS PRN PO .INSOMNIA; Start 07/11/18 at 08:30 IV Flush (NS 3 ml) 3 ml per protocol IV ; Start 07/11/18 at 08:30 VTE Prophylaxis [place] [facility] [place] risk: 5 SCD applied ([place] [facility] [place] Yes SCD contraindication: low risk/ambulating Pharm Contraindication: low risk/ambulating Lines/Catheters IV Catheter Type: Peripheral IV Cardoso in Place: CAREN Choi PA-C Jul 12, 2018 17:08
== END 2018-07-12 17:38 | disposition home or self-care (01) | DRG 483 ==
LOC: REC 06:12 → EDSTATUS 10:00 → MS1 10:06
PROVIDERS: ADMIT Orthopaedic Surgery; ATTEND Orthopaedic Surgery
PROC: 0RPJ0JZ Removal of Synthetic Substitute from Right Shoulder Joint, Open Approach (ICD-10-PCS; 2018-07-11)
PROC: 0RRJ00Z Replacement of Right Shoulder Joint with Reverse Ball and Socket Synthetic Substitute, Open Approach (ICD-10-PCS; principal; 2018-07-11 07:00)
DX: T84.098A Other mechanical complication of other internal joint prosthesis, initial encounter (principal); T84.59XA Infection and inflammatory reaction due to other internal joint prosthesis, initial encounter; E66.9 Obesity, unspecified; Z68.36 Body mass index [BMI] 36.0-36.9, adult; K21.9 Gastro-esophageal reflux disease without esophagitis; E78.2 Mixed hyperlipidemia; Z96.611 Presence of right artificial shoulder joint
CPT/HCPCS: 86999; 87070; 87075; 87102; 87116; 97161; C1776; J0171; J0690; J0735; J1100; J1885; J2250; J2274; J2405; J2710; J2795; J3010; J3370

== ENCOUNTER 2018-08-01 07:09 | Day surgery (SDC) | payer OTHER ==
--- NOTE | 2018-07-05 19:30 | CONS ---
DATE OF ADMISSION: 05/08/2018 DATE OF CONSULTATION: PATIENT NAME: AMPARO RUEDA TYPE OF CONSULTATION: Preoperative gastroenterology. Dear Dr. Oropeza: I thank you very much for this kind referral. HISTORY OF PRESENT ILLNESS: Mr. Amparo Rueda is a 52-year-old male patient who has been referred t o me for further evaluation of positive occult blood in stool. The patient has also noticed a change in the bowel habit. No past history of colon neoplasm. The patient never had screening colonoscopy . Appetite is good, no weight loss. No upper abdominal pain. Not on nonsteroidal anti-inflammatory agents. No history of gallstones or liver disease. The patient is hypertensive. Not a diabetic. No heart disease, lung problem or kidney disease. Has hyperlipidemia. SOCIAL HISTORY: Nonsmoker. No alcohol abuse. FAMILY HISTORY: No family history of gastrointestinal tract neoplasm. ALLERGIES: ALLERGIC TO PENICILLIN. MEDICATIONS: 1. Benazepril. 2. Hydrochlorothiazide. 3. Simvastatin. PHYSICAL EXAMINATION: VITAL SIGNS: He is 5 feet 7 inches tall and weighs 240 pounds. HEART: Normal heart sounds. LUNGS: Clear. ABDOMEN: Soft, no masses. Normal bowel sounds. NEUROLOGIC: Normal neurological exam. IMPRESSION: 1. Positive occult blood in stool. 2. Change in the bowel habit. 3. The patient never had screening colonoscopy. 4. Hypertension. 5. Hyperlipidemia. 6. Obesity. 7. History of sleep apnea. 8. ALLERGY TO PENICILLIN. PLAN: 1. Colonoscopy for further evaluation. 2. Because of the obesity with the short thick neck and sleep apnea, the patient needs monitored ane sthesia care. The procedure and possible complications are well explained to the patient. The patient understands and consents to the procedure. I thank you once again. With warmest personal regards, Dictated By: VENITA BUENO/NARDA Conf#: [id number] DID#: [id number]
[~2018-08-01] VITALS: Ht 170.2 cm; Wt 106.3 kg
[~2018-08-01 07:09] MED LIST changes: +ACYC15OI6 TOP; -BUPIVACAINE 0.5% (SDV) 30 ML, morphine SULFATE (PF) 8 MG, EPINEPHrine 0.3 MG, KETOROLAC... IRR SCH; +CARB15DR50 BOTH EARS; +CLOT30CR35 TOP; +CYCL5TAB PO; -DEXAMETHASONE 1 MG TAB PO ONE; +DOXY100T21 PO; +FLUT9.9S NASAL; -GABAPENTIN 300 MG CAP PO ONE; +HC.5O30 TOP; +NAPR-688 PO; +OMEP20CA16 PO; -TRANEXAMIC ACID 1GM/100ML(PMX) 100 ML IVPB ONE; +VALA500T PO; -VANCOMYCIN 1 GM (PMX) 250 ML IVPB ONE
[2018-08-01 07:55] VITALS: Ht 170.2 cm; Wt 106.3 kg
[2018-08-01 08:07] VITALS: BP 139/78; PULSE 64; RESP 20
[2018-08-01] MEDS ORDERED: BENAZEPRIL DAILY (08:11)
--- NOTE | 2018-08-01 08:45 | PREAC ---
Date/Time of Note Date/Time of Note DATE: 08/01/18 TIME: 08:44 Anesthesia Eval and Record Evaluation Time Pre-Procedure Interview DATE: 08/01/18 TIME: 08:44 Age 52 Sex male NPO: 8 hrs Preoperative diagnosis Positive Occult Blood in stool Planned procedure Colonoscopy Past Medical History Past Medical History: Includes Cardio: HTN, Dyslipidemia Pulm: Sleep Apnea, Home CPAP Psych: Anxiety Surgery & Anesthesia Issues No known issue Meds Anticoagulation: No Beta Saran within 24 hr: No Reason Beta Saran not given: Pt. not on B-Saran Reported Medications [Benazepril Daily] No Conflict Check 08/01/18 Carbamide Peroxide* (Debrox*) 6.5% - 15 Ml Drops, 10 DROP BOTH EARS BID for INTO AFFECTED EARS, BOTTLE 07/11/18 Clotrimazole* (Lotrimin*) 1%-30 Gm Cream..g., 1 APPLIC TOP BID, TUB 07/11/18 Fluticasone Propionate (Flonase Allergy Relief) 9.9 Ml [place].susp, 1 SPRAY NASAL DAILY, #1 BOTTLE TO EACH NOSTRIL 07/11/18 Acyclovir* (Acyclovir* Oint) 5%-15 Gm Oint, 1 APPLIC TOP 5 TIMES DAILY, #1 TUB 07/11/18 Loratadine* (Loratadine*) 10 Mg Tablet, 10 MG PO DAILY, #30 TAB 04/06/18 Simvastatin* (Zocor*) 20 Mg Tablet, 20 MG PO QHS, #30 TAB 08/11/17 Benazepril Hcl* (Benazepril Hcl*) 20 Mg Tablet, 20 MG PO DAILY, #30 TAB 08/11/17 Hydrochlorothiazide* (Hydrochlorothiazide*) 25 Mg Tab, 25 MG PO DAILY, #30 TAB 08/11/17 Discontinued Reported Medications Hydrocortisone* Topical (Hydrocortisone* Topical) 0.5%- 28.35 Gm Oint, 1 APPLIC TOP QID PRN for ITCHING, TUB 07/11/18 Naproxen* (Naproxen*) 500 Mg Tablet, 500 MG PO BID PRN for PAIN LEVEL 4-7, TAB 07/11/18 Doxycycline Monohydrate* (Doxycycline Monohydrate*) 100 Mg Tablet, 100 MG PO BID, TAB 07/11/18 Cyclobenzaprine Hcl* (Cyclobenzaprine Hcl*) 5 Mg Tablet, 5 MG PO DAILY PRN for MUSCLE SPASMS, #60 TAB 07/11/18 Omeprazole* (Omeprazole*) 20 Mg Capsule.dr, 20 MG PO BID, #60 CAP 07/11/18 valAcyclovir Hcl* (valACYclovir Hcl*) 500 Mg Tablet, 500 MG PO BID, TAB 07/11/18 Meds reviewed: Yes Allergies Coded Allergies: Penicillins (Verified Allergy, Unknown, 08/01/18) Allergies Reviewed: Yes Labs/Studies Labs Reviewed: Reviewed by anesthesiologist test: N/A Studies: ECG (n/a), CXR (n/a) Pre-procedure Exam Last vitals Vital Signs Date Temp Pulse Resp B/P (MAP) Pulse Ox O2 O2 Flow FiO2 Time Delivery Rate 08/01/18 98.4 64 20 139/78 97 Room Air 08:07 (98) Airway: Adequate mouth opening, Adequate thyromental dist Mallampati: Mallampati II Teeth: Normal Lung: Normal Heart: Normal ASA Physical Status ASA physical status: 2 Emergency: None Planned Anesthetic General/MAC: MAC Planned Pain Management Parenteral pain med Pre-operative Attestations Prior to commencing anesthesia and surgery, the patient was re-evaluated, there was verification of: *The patient's identity *The results of appropriate recent lab work and preoperative vital signs *The above evaluation not changing prior to induction *Anesthetic plan, risk benefits, alternative and complications discussed with patient/family; questions answered; patient/family understands, accepts and wishes to proceed. KENNY MESA MD Aug 01, 2018 08:45
[2018-08-01] MEDS ORDERED: PROPOFOL 60 ML ONE (09:40)
--- NOTE | 2018-08-01 09:45 | PAC ---
Date/Time of Note Date/Time of Note DATE: 08/01/18 TIME: 09:45 Post-Anesthesia Notes Post-Anesthesia Note Last documented vital signs Vital Signs Date Temp Pulse Resp B/P (MAP) Pulse Ox O2 O2 Flow FiO2 Time Delivery Rate 08/01/18 98.4 64 20 139/78 97 Room Air 09:37 (98) Activity: WNL Respiratory function: WNL Cardiovascular function: WNL Mental status: Baseline Pain reasonably controlled: Yes Hydration appropriate: Yes Nausea/Vomiting absent: Yes KENNY MESA MD Aug 01, 2018 09:45
[2018-08-01] MEDS ORDERED: FENTAnyl 50 MCG/ML VIAL ONE (11:14)
[2018-08-01] MEDS ORDERED: MIDAZOLAM 1 MG/ML 2 ML INJ ONE ×2 (11:15)
== END 2018-08-01 13:12 | disposition home or self-care (01) ==
LOC: GIL 07:09
PROVIDERS: ATTEND Internal Medicine Gastroenterology
DX: K92.1 Melena (principal); D12.5 Benign neoplasm of sigmoid colon; K64.8 Other hemorrhoids; I10 Essential (primary) hypertension
CPT/HCPCS: 45385; 88305; J2250; J3010; Z7610

== ENCOUNTER 2018-08-31 10:25 | Inpatient (IN) | payer OTHER ==
[~2018-08-31] VITALS: Ht 170.2 cm; Wt 107.0 kg
[2018-08-31] VITALS (21 sets, daily range): BP systolic 105–136; BP diastolic 68–90; PULSE 66–88; RESP 15–31; Ht 170.2 cm; Wt 107.0 kg
[~2018-08-31 10:25] MED LIST changes: +BENAZEPRIL DAILY; +CLINDAMYCIN 900 MG/50 ML D5W IVPB IVPB ONE; -CYCL5TAB PO; -DOXY100T21 PO; +ETOMIDATE 20 MG INJ ONE; -HC.5O30 TOP; -NAPR-688 PO; -OMEP20CA16 PO; +SOD CHLORIDE 0.9% 1,000 ML IV SCH; +SUCCINYLCHOLINE CHLORIDE 100 MG/5 ML SYG IV ONE; -VALA500T PO
[2018-08-31] MEDS ORDERED: DEXAMETHASONE 4 MG/ML 5 ML INJ ONE (12:17)
[2018-08-31] MEDS ORDERED: MIDAZOLAM 1 MG/ML 2 ML INJ ONE (12:17)
[2018-08-31] MEDS ORDERED: GLYCOPYRROLATE 0.4 MG INJ ONE (12:17)
[2018-08-31] MEDS ORDERED: FENTAnyl 50 MCG/ML VIAL ONE (12:17)
[2018-08-31] MEDS ORDERED: CEFAZOLIN 1 GM INJ ONE (12:17)
[2018-08-31] MEDS ORDERED: ROCURONIUM 50 MG INJ ONE (12:17)
[2018-08-31] MEDS ORDERED: ONDANSETRON 4 MG INJ ONE (12:17)
[2018-08-31] MEDS ORDERED: NEOSTIGMINE 3 MG/3 ML SYRINGE ONE (12:17)
[2018-08-31] MEDS ORDERED: PROPOFOL 20 ML ONE (12:17)
--- NOTE | 2018-08-31 13:40 | PREAC ---
Date/Time of Note Date/Time of Note DATE: 08/31/18 TIME: 13:36 Anesthesia Eval and Record Evaluation Time Pre-Procedure Interview DATE: 08/31/18 TIME: 13:36 Age 52 Sex male NPO: 8 hrs Preoperative diagnosis SIGMOID COLON CANCER Planned procedure LAP LEFT HEMICOLECTOMY Past Medical History Past Medical History: Includes Cardio: HTN, Dyslipidemia Pulm: Sleep Apnea, Home CPAP GI: Obesity Surgery & Anesthesia Issues No known issue Meds Anticoagulation: No Beta Saran within 24 hr: No Reason Beta Saran not given: Pt. not on B-Saran Reported Medications Fluticasone Propionate (Flonase Allergy Relief) 9.9 Ml [place].susp, 1 SPRAY NASAL DAILY, #1 BOTTLE TO EACH NOSTRIL 07/11/18 Loratadine* (Loratadine*) 10 Mg Tablet, 10 MG PO DAILY, #30 TAB 04/06/18 Simvastatin* (Zocor*) 20 Mg Tablet, 20 MG PO QHS, #30 TAB 08/11/17 Benazepril Hcl* (Benazepril Hcl*) 20 Mg Tablet, 20 MG PO DAILY, #30 TAB 08/11/17 Hydrochlorothiazide* (Hydrochlorothiazide*) 25 Mg Tab, 25 MG PO DAILY, #30 TAB 08/11/17 Discontinued Reported Medications [Benazepril Daily] No Conflict Check 08/01/18 Carbamide Peroxide* (Debrox*) 6.5% - 15 Ml Drops, 10 DROP BOTH EARS BID for INTO AFFECTED EARS, BOTTLE 07/11/18 Clotrimazole* (Lotrimin*) 1%-30 Gm Cream..g., 1 APPLIC TOP BID, TUB 07/11/18 Acyclovir* (Acyclovir* Oint) 5%-15 Gm Oint, 1 APPLIC TOP 5 TIMES DAILY, #1 TUB 07/11/18 Current Medications Sodium Chloride 1,000 ml @ 75 mls/hr [id number] IV Last administered on 08/31/18at 11:54; Admin Dose 75 MLS/HR; Start 08/31/18 at 10:00; Stop 08/31/18 at 23:19 Meds reviewed: Yes Allergies Coded Allergies: Penicillins (Verified Allergy, Unknown, 08/31/18) Allergies Reviewed: Yes Labs/Studies Labs Reviewed: Reviewed by anesthesiologist test: N/A Studies: ECG (NL), CXR (NAPD) Pre-procedure Exam Last vitals Vital Signs Date Temp Pulse Resp B/P (MAP) Pulse Ox O2 O2 Flow FiO2 Time Delivery Rate 08/31/18 97.2 81 18 124/90 95 Room Air 11:39 (101) Airway: Adequate mouth opening, Adequate thyromental dist Mallampati: Mallampati II Teeth: Normal Lung: Normal Heart: Normal ASA Physical Status ASA physical status: 2 Emergency: None Planned Anesthetic General/MAC: ETT Neuraxial: Spinal Planned Pain Management Sub-arachniod narcotics, Parenteral pain med Pre-operative Attestations Prior to commencing anesthesia and surgery, the patient was re-evaluated, there was verification of: *The patient's identity *The results of appropriate recent lab work and preoperative vital signs *The above evaluation not changing prior to induction *Anesthetic plan, risk benefits, alternative and complications discussed with patient/family; questions answered; patient/family understands, accepts and wishes to proceed. Ty Hardy M.D. August 31, 2018 13:40
[2018-08-31] MEDS ORDERED: LABETALOL HCL 20MG INJ IV PRN (14:00)
[2018-08-31] MEDS ORDERED: NALOXONE (0.4 MG/ML) INJ IV PRN ×2 (14:00→17:30)
[2018-08-31] MEDS ORDERED: OXYCODONE/ACETAMINOPHEN (5/325) TAB PO PRN ×2 (14:00)
[2018-08-31] MEDS ORDERED: HYDROmorphONE 0.5 MG/0.5 ML SYG IV PRN ×2 (14:00)
[2018-08-31] MEDS ORDERED: HYDROmorphONE 1 MG/5 ML IV SYRINGE IV PRN ×2 (14:00)
[2018-08-31] MEDS ORDERED: DIPHENHYDRAMINE 50 MG INJ IV PRN ×2 (14:00)
[2018-08-31] MEDS ORDERED: MEPERIDINE 25 MG INJ IV PRN (14:00)
[2018-08-31] MEDS ORDERED: KETOROLAC 30 MG INJ IV PRN (14:00)
[2018-08-31] MEDS ORDERED: IPRATROPIUM (NEB) 0.5 MG/2.5 ML AMP HHN PRN (14:00)
[2018-08-31] MEDS ORDERED: NALBUPHINE HCL (10 MG/1 ML) INJ IV PRN (14:00)
[2018-08-31] MEDS ORDERED: ONDANSETRON 4 MG INJ IV PRN ×2 (14:00)
[2018-08-31] MEDS ORDERED: EPHEDrine 25 MG/5 ML SYG IV PRN (14:00)
[2018-08-31] MEDS ORDERED: ALBUTEROL 0.083% (NEB) 2.5 MG/3 ML AMP HHN PRN (14:00)
[2018-08-31] MEDS ORDERED: FENTAnyl 50 MCG/ML VIAL IV PRN ×2 (14:00)
[2018-08-31] MEDS ORDERED: MIDAZOLAM 1 MG/ML 2 ML INJ IV PRN (14:00)
[2018-08-31] MEDS ORDERED: hydrALAzine 20 MG INJ IV PRN ×2 (14:00→23:00)
[2018-08-31] MEDS ORDERED: TRIMETHOBENZAMIDE 100 MG/ML VIAL IM PRN ×2 (14:00)
[2018-08-31] MEDS ORDERED: morphine SULFATE/PF (10 MG/10 ML) INJ ONE (14:03)
[2018-08-31] MEDS ORDERED: METHYLENE BLUE 50 MG/10 ML AMPUL ONE ×2 (16:13→16:30)
[2018-08-31] MEDS ORDERED: SUGAMMADEX SODIUM 200 MG/2 ML VIAL IV ONE ×3 (17:18→17:40)
[2018-08-31] MEDS ORDERED: CIPROFLOXACIN 400MG/D5W 200 ML IVPB SCH (17:30)
--- NOTE | 2018-08-31 17:36 | OPR ---
Date/Time of Note Date/Time of Note DATE: 08/31/18 TIME: 17:25 Operative Report Procedure Date: August 31, 2018 Preoperative Diagnosis colon cancer Postoperative Diagnosis same Operation/Procedure Performed 1. laparoscopic converted to open rectosigmoidectomy with low pelvic anastomosis 2. open lysis of adhesions Surgeon see signature line Solar Applications Development Engineer none Anesthesia Type: general Estimated Blood Loss: 100 - 150 ml's Transfusion none Specimen rectosigmoid with distal suture markings Grafts/Implants none Complications none Pt Condition Post Procedure: stable Indications This is a 52-year-old male with colonoscopy and biopsy-proven rectosigmoid cancer. Is here for surgical resection. Risks alternatives benefits and percent were discussed the patient. Potential complications including but not limited to bleeding infection ureteral injury anastomotic leak pain recurrence of cancer need for colostomy and need for additional operations were discussed the patient. Patient expressed understanding and consents to the operation. Procedure Description Patient is taken to the OR and prepped and draped in usual sterile fashion. Surgical timeout is performed. IV antibiotics were given. Infraumbilical midline incision was made at the 15 blade. Using dissection with cautery incisi on was taken down all the way to the fascia. 0 Vicryl stay sutures were placed on either side of the midline. Langford trocar was introduced. Pneumoperitoneum was established. Suprapubic 12 mm optical trocar was placed under direct visualization. Right lower quadrant 5 mm optical trocar was placed under direct visualization. Upon initial inspection there is redundant sigmoid:. Additionally further inspection showed that tattoo markings indicating the area of the colon cancer was in the low rectal area right at the peritoneal reflection. Due to the narrow pelvis and redundant sigmoid colon and an abundance of fat this did not appear to be amenable to laparoscopic approach. Midline incision was then made with a 10 blade. This was extended superiorly to the periumbilical area right above the umbilicus and down to the pubic area. Dissection with cautery skin onto the fascia the fascia was opened at the decussation. Retractors were placed. Further inspection showed that indeed confirmation of what the laparoscopic findings showed a very low pelvic rectal cancer. Dissection was taken along the area of the white line of Toldt on the left side. Due to the redundancy of the sigmoid colon the left colic artery did not need to be taken. The peritoneum was scored along the sigmoid colon on the right and left and this scoring was taken down all the way to the low pelvis. The rectosigmoid region was then disconnected using a 60 mm Scofield blue load stapler. The sigmoid mesentery was divided with laparoscopic harmonic which was opened up for the laparoscopic portion. This was taken down all the way to the superior rectal vessels. The superior rectal vessels were identified and ligated using 0 silk and divided. This further was then taken down using a total mesorectal excision taking careful attention to encompass the peritoneal reflection. This was taken down all the way to and inferior to an area of firmness which signified the colon cancer. 35 mm contour stapler was used to divide the rectum distal to the colon cancer. The specimen was then removed and sent to the pathologist with suture marking the distal edge. Intraoperative c onsultation with the pathologist showed that the rectal tumor was excised with approximately 2.5 cm distal gross margin. The proximal margin was well clear above 5 cm. IV methylene blue was administered. The Cardoso catheter showed blue dye without any pooling in the pelvis indicating there was no ureteral injury. The left ureter was also identified showing good peristalsis. Rectal sizers were used all the way to 33 mm. The left colon staple line was then resected using scissors and the EEA 33 mm anvil was placed and secured with a pursestring 3-0 Prolene. After sizing the rectum up to the 33 mm size with the anal sizer the EEA stapler was placed in the appropriate position. The anvil was reapproximated to the EEA stapler and the stapler was fired with the appropriate orientation making sure that there was no twisting of the colon. A leak test was then performed by obstructing the colon proximal to the staple line and irrigating the abdomen. The rectum was then insufflated. There is no bubbling or any indication of a anastomotic leak. The EEA stapler was also checked into donuts were intact indicating the proximal distal anastomosis was intact. Good hemostasis was established in the surgical field with a good tension-free anastomosis due to the redundant sigmoid colon. The fascia was then closed from the superior inferior and inferior superior with a looped #1 PDS and met in the middle and tied down. The wound was then irrigated and washed out. Skin was closed and skin coco. Spinal was administered by the anesthesiologist at the beginning of the case. Dry dressings were applied. Karen RUDOLPH August 31, 2018 17:36
[2018-08-31] MEDS ORDERED: KETOROLAC 30 MG INJ ONE (17:48)
--- NOTE | 2018-08-31 17:55 | PAC ---
Date/Time of Note Date/Time of Note DATE: 08/31/18 TIME: 17:55 Post-Anesthesia Notes Post-Anesthesia Note Last documented vital signs Vital Signs Date Temp Pulse Resp B/P (MAP) Pulse Ox O2 O2 Flow FiO2 Time Delivery Rate 08/31/18 97.2 81 18 124/90 95 Room Air 11:39 (101) Activity: WNL Respiratory function: WNL Cardiovascular function: WNL Mental status: Baseline Pain reasonably controlled: Yes Hydration appropriate: Yes Nausea/Vomiting absent: Yes Ty Hardy M.D. August 31, 2018 17:55
[2018-08-31] MEDS: FENTAnyl 50 MCG/ML VIAL IV PRN ×4 (18:02→18:30)
[2018-08-31] MEDS: HYDROmorphONE 1 MG/5 ML IV SYRINGE IV PRN ×3 (18:21→18:38)
[2018-08-31] MEDS ORDERED: ACETAMINOPHEN 1000MG/100ML IV 100 ML IVPB ONE (18:30)
[2018-08-31] MEDS: metroNIDAZOLE 500 MG/NS (PMX) 100 ML IVPB SCH (19:30)
[2018-08-31] MEDS: LACTATED RINGER'S 1,000 ML IV SCH (20:57)
[2018-08-31] MEDS ORDERED: ACETAMINOPHEN 1000 MG/100 ML IVPB IV PRN (23:00)
[2018-09-01 00:42] VITALS: BP 135/79; PULSE 80; RESP 17
[2018-09-01] MEDS: metroNIDAZOLE 500 MG/NS (PMX) 100 ML IVPB SCH ×2 (02:51→11:03)
[2018-09-01] MEDS: HYDROmorphONE 0.2 MG/ML PCA IV SCH ×2 (03:00→17:50)
[2018-09-01] MEDS: LACTATED RINGER'S 1,000 ML IV SCH ×2 (03:23→09:04)
--- NOTE | 2018-09-01 04:02 | HP ---
DATE OF ADMISSION: 08/31/2018 CHIEF COMPLAINT AND HISTORY OF PRESENT ILLNESS: The patient is a 52-year-old gentleman who was refer red to Dr. Werner for guaiac positive stool. The patient also has history of hypertension and dysli pidemia. The patient underwent colonoscopy which revealed biopsy proven rectosigmoid cancer. The pa radha was referred to Dr. Rudolph and was brought into hospital today and underwent laparoscopic converte d to open rectosigmoidectomy with low pelvic anastomosis, open lysis of adhesions. The patient is be ing admitted for evaluation and management. The patient denied any chest pain. No shortness of veto th. No history of headache, dizziness or syncope. No history of resting leg pain. No history of le g edema. No history of any focal weakness. REVIEW OF SYSTEMS: Other than postoperative pain, rest of review of systems is unremarkable. 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 Thomas in 07/2018. SOCIAL HISTORY: No smoking or alcohol. FAMILY HISTORY: Negative for GI neoplasm. ALLERGIES: PENICILLIN. MEDICATIONS PRIOR TO ADMISSION: The patient is on: 1. Benazepril. 2. Zocor. 3. Hydrochlorothiazide. 4. Flonase nasal spray. 5. Loratadine. PHYSICAL EXAMINATION: GENERAL: Revealed the patient to be awake, alert. VITAL SIGNS: Weight 107 kg. Temperature 99, pulse 70, respirations 23, blood pressure 119/71, O2 sa turation 99% on 2 liters nasal cannula. HEENT: Atraumatic, normocephalic head. Conjunctivae and lids are normal. Oropharynx is clear. NECK: No mass. CHEST: Fairly clear. CARDIOVASCULAR: S1, S2 normal. No murmur. ABDOMEN: The patient is status post surgery. EXTREMITIES: No edema. Pedal pulses are palpable. SKIN: Without acute rash. NEUROLOGIC: The patient is awake, alert, fairly oriented. LABORATORY DATA: WBC 17, hemoglobin 13.5, platelet 269. Sodium 139, potassium 3.6, BUN 12, creatini ne 0.9. Liver enzymes are unremarkable. IMPRESSION: 1. Colon cancer, status post laparoscopic converted to open rectosigmoidectomy with low pelvic anast omosis. 2. Hypertension. 3. Dyslipidemia. 4. Allergic rhinitis. PLAN: The patient will be admitted on medical floor. The patient will be kept n.p.o. and will be st arted on IV fluid. The patient will receive IV Cipro and Flagyl as per protocol. 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 We will use SCD for DVT prophylaxis. For naus ea, the patient is on Tigan on p.r.n. basis. We will hold off on p.o. medication. We will add IV hy dralazine on p.r.n. basis for hypertension. We will continue to follow. Continue postop care as per Dr. Rudolph. Dictated By: LEW VIRGEN MD AB/NTS Conf#: [id number] DID#: [id number] CC: EARNEST RUDOLPH MD;*End*
[2018-09-01] MEDS: DIPHENHYDRAMINE 50 MG CAP PO PRN ×3 (05:45→18:01)
[2018-09-01 07:44] VITALS: BP 104/59; PULSE 76; RESP 20
[2018-09-01] MEDS: FLUTICASONE 0.05% 16 GM NAS SPRAY NASAL SCH (09:00)
[2018-09-01] MEDS ORDERED: CIPROFLOXACIN 400MG/D5W 200 ML IVPB SCH (09:00)
--- NOTE | 2018-09-01 09:12 | PN ---
Date/Time of Note Date/Time of Note DATE: 09/01/18 TIME: 09:09 Assessment/Plan VTE Prophylaxis Risk score (from Ns)>0 risk: 7 SCD applied (from [facility] [place]): Yes SCD contraindicated: other Pharmacological prophylaxis: other Lines/Catheters IV [facility]ter Type (from [facility]): Peripheral IV Urinary Cath still in place: Yes Reason Cath still needed: urinary retention Assessment/Plan Assessment/Plan 1. Colon cancer, status post laparoscopic converted to open rectosigmoidectomy with low pelvic anastomosis. - Continue postop care as per Dr. Moya. 2. Hypertension. 3. Dyslipidemia. 4. Allergic rhinitis. PLAN: - n.p.o. and will be started on IV fluid. - IV Cipro and Flagyl as per protocol. - For pain control, the patient is on Dilaudid PROGRAM ASSISTANT as well as IV Toradol. - SCD for DVT prophylaxis. - For nausea, the patient is on Tigan on p.r.n. basis. - We will hold off on p.o. medication. - IV hydralazine on p.r.n. basis for hypertension. We will continue to follow. Dw Dr Pastor Result Diagram: 09/01/180 09/01/18 0440 Results 24hrs Laboratory Tests Test 08/31/18 18:28 09/01/18 04:40 09/01/18 07:32 White Blood Count 17.0 #H 15.6 H Red Blood Count 4.68 L 4.53 L Hemoglobin 13.5 L 13.1 L Hematocrit 41.2 L 39.4 L Mean Corpuscular Volume 88.0 87.0 Mean Corpuscular Hemoglobin 28.8 L 28.9 L Mean Corpuscular 32.8 33.2 Hemoglobin Concent Red Cell Distribution Width 14.6 H 14.3 Platelet Count 269 306 Mean Platelet Volume 10.5 H 10.6 H Immature Granulocytes % 0.300 0.400 Neutrophils % 77.2 H 86.1 H Lymphocytes % 14.4 L 4.9 L Monocytes % 7.2 8.5 Eosinophils % 0.5 0.0 Basophils % 0.4 0.1 Nucleated Red Blood Cells % 0.0 0.0 Immature Granulocytes # 0.050 H 0.070 H Neutrophils # 13.1 H 13.4 H Lymphocytes # 2.4 0.8 Monocytes # 1.2 H 1.3 H Eosinophils # 0.1 0.0 Basophils # 0.1 0.0 Nucleated Red Blood Cells # 0.0 0.0 CBC Results Faxed/Phoned 1 *H Sodium Level 139 139 Potassium Level 3.6 3.8 Chloride Level 108 106 Carbon Dioxide Level 22 22 Anion Gap 9 11 Blood Urea Nitrogen 12 13 Creatinine 0.92 0.81 Est Glomerular Filtrat > 60 > 60 Rate mL/min Glucose Level 119 147 Calcium Level 7.6 L 8.8 Total Bilirubin 0.5 0.7 Direct Bilirubin 0.00 0.00 Indirect Bilirubin 0.5 0.7 Aspartate Amino Transf (AST/SGOT) 61 H 58 H Alanine 45 43 Aminotransferase (ALT/SGPT) Alkaline Phosphatase 53 44 Total Protein 6.5 6.8 Albumin 3.4 3.9 Globulin 3.10 2.90 Albumin/Globulin Ratio 1.09 1.34 Lab Scanned Report REFERENCE LAB Subjective 24 Hr Interval Summary Free Text/Dictation Leukocytosis- on post op antibiotics up in chair Eyes: no complaints ENT: no complaints Respiratory: no complaints Cardiovascular: no complaints Gastrointestinal: pain Genitourinary: no complaints Musculoskeletal: no complaints Skin: no complaints Neurologic: no complaints Endocrine: no complaints Psychological: nl mood/affect Exam/Review of Systems Exam Vitals Vital Signs Date Temp Pulse Resp B/P (MAP) Pulse Ox O2 O2 Flow FiO2 Time Delivery Rate 09/01/18 99.3 76 20 104/59 91 Nasal 07:44 (74) Cannula 08/31/18 2.0 22:12 Intake and Output 08/31/18 08/31/18 09/01/18 1515:00 23:00 07:00 IntakeIntake Total 3920 ml 1000 ml OutputOutput Total 750 ml 1100 ml BalanceBalance 3170 ml -100 ml Constitutional: alert, well developed Psych: nl mood/affect Head: atraumatic Eyes: nl lids, nl sclera ENMT: nl external ears & nose Neck: non-tender Respiratory: clear to auscultation Cardiovascular: nl pulses, other (s1s2) Gastrointestinal: soft, other (surgical abdomen) Musculoskeletal: nl extremities to inspection Extremities: normal pulses Neurological: nl speech Lymph: nontender Results Results 24hrs Laboratory Tests Test 08/31/18 18:28 09/01/18 04:40 09/01/18 07:32 White Blood Count 17.0 #H 15.6 H Red Blood Count 4.68 L 4.53 L Hemoglobin 13.5 L 13.1 L Hematocrit 41.2 L 39.4 L Mean Corpuscular Volume 88.0 87.0 Mean Corpuscular Hemoglobin 28.8 L 28.9 L Mean Corpuscular 32.8 33.2 Hemoglobin Concent Red Cell Distribution Width 14.6 H 14.3 Platelet Count 269 306 Mean Platelet Volume 10.5 H 10.6 H Immature Granulocytes % 0.300 0.400 Neutrophils % 77.2 H 86.1 H Lymphocytes % 14.4 L 4.9 L Monocytes % 7.2 8.5 Eosinophils % 0.5 0.0 Basophils % 0.4 0.1 Nucleated Red Blood Cells % 0.0 0.0 Immature Granulocytes # 0.050 H 0.070 H Neutrophils # 13.1 H 13.4 H Lymphocytes # 2.4 0.8 Monocytes # 1.2 H 1.3 H Eosinophils # 0.1 0.0 Basophils # 0.1 0.0 Nucleated Red Blood Cells # 0.0 0.0 CBC Results Faxed/Phoned 1 *H Sodium Level 139 139 Potassium Level 3.6 3.8 Chloride Level 108 106 Carbon Dioxide Level 22 22 Anion Gap 9 11 Blood Urea Nitrogen 12 13 Creatinine 0.92 0.81 Est Glomerular Filtrat > 60 > 60 Rate mL/min Glucose Level 119 147 Calcium Level 7.6 L 8.8 Total Bilirubin 0.5 0.7 Direct Bilirubin 0.00 0.00 Indirect Bilirubin 0.5 0.7 Aspartate Amino Transf (AST/SGOT) 61 H 58 H Alanine 45 43 Aminotransferase (ALT/SGPT) Alkaline Phosphatase 53 44 Total Protein 6.5 6.8 Albumin 3.4 3.9 Globulin 3.10 2.90 Albumin/Globulin Ratio 1.09 1.34 Lab Scanned Report REFERENCE LAB Medications Medication Current Medications Hydromorphone HCl (Dilaudid) 0.2 mg Q2H PRN IV .PAIN 1-5; Start 08/31/18 at 14:00 Hydromorphone HCl (Dilaudid) 0.4 mg Q2H PRN IV .PAIN 6-10; Start 08/31/18 at 14:00 Ketorolac Tromethamine (Toradol) 30 mg Q6H PRN IV .PAIN 6-10; Start 08/31/18 at 14:00; Stop 09/03/18 at 13:59 Nalbuphine HCl (Nubain) 10 mg Q4H PRN IV .PRURITUS; Start 08/31/18 at 14:00 Ondansetron HCl (Zofran Inj) 4 mg Q6H PRN IV .NAUSEA/VOMITING; Start 08/31/18 at 14:00 Trimethobenzamide HCl (Tigan) 200 mg Q6H PRN IM .NAUSEA/VOMITING; Start 08/31/18 at 14:00 Naloxone HCl (Narcan) 0.2 mg Q2M PRN IV .RESP RATE; Start 08/31/18 at 14:00 Miscellaneous Information (* Miscellaneous Pharmacy Order) DURAMORPH: 0.1 MG SPI... GIVEN NEURAXIAL XX ; Start 08/31/18 at 14:00 Metronidazole 100 ml @ 100 mls/hr Q8H IVPB Last administered on 09/01/18at 02:51; Admin Dose 100 MLS/HR; Start 08/31/18 at 18:30; Stop 09/01/18 at 18:29 Lactated Ringer's 1,000 ml @ 100 mls/hr Q10H IV Last administered on 08/31/18at 20:57; Admin Dose 100 MLS/HR; Start 08/31/18 at 17:23 Naloxone HCl (Narcan) 0.2 mg Q2M PRN IV RR 8 BREATHS/MIN OR LESS; Start 08/31/18 at 17:30 Hydromorphone HCl (Dilaudid PROGRAM ASSISTANT) Q4PCA IV Last administered on 09/01/18at 03:00; Admin Dose 6 MG; Start 08/31/18 at 17:30 Acetaminophen (Ofirmev 1000mg/ 100ml Iv) 1,000 mg Q6H PRN IV FEVER GREATER THAN 100.6; Start 08/31/18 at 23:00; Stop 09/01/18 at 22:59 Fluticasone Propionate (Flonase 0.05% Nasal) 1 spray DAILY NASAL ; Start 09/01/18 at 09:00 Hydralazine HCl (Apresoline) 20 mg Q6H PRN IV >160/95; Start 08/31/18 at 23:00 Diphenhydramine HCl (Benadryl) 50 mg Q6H PRN PO ITCHING Last administered on 09/01/18at 05:45; Admin Dose 50 MG; Start 09/01/18 at 05:30 Ciprofloxacin/ Dextrose 200 ml @ 200 mls/hr Q12H IVPB ; Start 09/01/18 at 09:00; Stop 09/01/18 at 09:59 WILDA ONEAL September 01, 2018 09:12
--- NOTE | 2018-09-01 14:36 | PN ---
Date/Time of Note Date/Time of Note DATE: 09/01/18 TIME: 14:35 Assessment/Plan VTE Prophylaxis Risk score (from Ns)>0 risk: 9 SCD applied (from Ns): Yes Pharmacological prophylaxis: other Lines/Catheters IV [facility]ter Type (from [facility]): Peripheral IV Urinary Cath still in place: Yes Reason Cath still needed: other (indicate) Assessment/Plan Assessment/Plan s/p lap converted to open rectosigmoidectomy doing well clears today dc parson tomorrow Result Diagram: 09/01/18 0440 09/01/18 0440 Results 24hrs Laboratory Tests Test 08/31/18 18:28 09/01/18 04:40 09/01/18 07:32 White Blood Count 17.0 #H 15.6 H Red Blood Count 4.68 L 4.53 L Hemoglobin 13.5 L 13.1 L Hematocrit 41.2 L 39.4 L Mean Corpuscular Volume 88.0 87.0 Mean Corpuscular Hemoglobin 28.8 L 28.9 L Mean Corpuscular 32.8 33.2 Hemoglobin Concent Red Cell Distribution Width 14.6 H 14.3 Platelet Count 269 306 Mean Platelet Volume 10.5 H 10.6 H Immature Granulocytes % 0.300 0.400 Neutrophils % 77.2 H 86.1 H Lymphocytes % 14.4 L 4.9 L Monocytes % 7.2 8.5 Eosinophils % 0.5 0.0 Basophils % 0.4 0.1 Nucleated Red Blood Cells % 0.0 0.0 Immature Granulocytes # 0.050 H 0.070 H Neutrophils # 13.1 H 13.4 H Lymphocytes # 2.4 0.8 Monocytes # 1.2 H 1.3 H Eosinophils # 0.1 0.0 Basophils # 0.1 0.0 Nucleated Red Blood Cells # 0.0 0.0 CBC Results Faxed/Phoned 1 *H Sodium Level 139 139 Potassium Level 3.6 3.8 Chloride Level 108 106 Carbon Dioxide Level 22 22 Anion Gap 9 11 Blood Urea Nitrogen 12 13 Creatinine 0.92 0.81 Est Glomerular Filtrat > 60 > 60 Rate mL/min Glucose Level 119 147 Calcium Level 7.6 L 8.8 Total Bilirubin 0.5 0.7 Direct Bilirubin 0.00 0.00 Indirect Bilirubin 0.5 0.7 Aspartate Amino Transf (AST/SGOT) 61 H 58 H Alanine 45 43 Aminotransferase (ALT/SGPT) Alkaline Phosphatase 53 44 Total Protein 6.5 6.8 Albumin 3.4 3.9 Globulin 3.10 2.90 Albumin/Globulin Ratio 1.09 1.34 Lab Scanned Report REFERENCE LAB Subjective 24 Hr Interval Summary Free Text/Dictation patient doing well pain control adequate Exam/Review of Systems Exam Vitals Vital Signs Date Temp Pulse Resp B/P (MAP) Pulse Ox O2 O2 Flow FiO2 Time Delivery Rate 09/01/18 18 09:00 09/01/18 Nasal 08:15 Cannula 09/01/18 99.3 76 104/59 91 07:44 (74) 08/31/18 2.0 22:12 Intake and Output 08/31/18 08/31/18 09/01/18 1515:00 23:00 07:00 IntakeIntake Total 3920 ml 1000 ml OutputOutput Total 750 ml 1100 ml BalanceBalance 3170 ml -100 ml Exam c/d/i Results Results 24hrs Laboratory Tests Test 08/31/18 18:28 09/01/18 04:40 09/01/18 07:32 White Blood Count 17.0 #H 15.6 H Red Blood Count 4.68 L 4.53 L Hemoglobin 13.5 L 13.1 L Hematocrit 41.2 L 39.4 L Mean Corpuscular Volume 88.0 87.0 Mean Corpuscular Hemoglobin 28.8 L 28.9 L Mean Corpuscular 32.8 33.2 Hemoglobin Concent Red Cell Distribution Width 14.6 H 14.3 Platelet Count 269 306 Mean Platelet Volume 10.5 H 10.6 H Immature Granulocytes % 0.300 0.400 Neutrophils % 77.2 H 86.1 H Lymphocytes % 14.4 L 4.9 L Monocytes % 7.2 8.5 Eosinophils % 0.5 0.0 Basophils % 0.4 0.1 Nucleated Red Blood Cells % 0.0 0.0 Immature Granulocytes # 0.050 H 0.070 H Neutrophils # 13.1 H 13.4 H Lymphocytes # 2.4 0.8 Monocytes # 1.2 H 1.3 H Eosinophils # 0.1 0.0 Basophils # 0.1 0.0 Nucleated Red Blood Cells # 0.0 0.0 CBC Results Faxed/Phoned 1 *H Sodium Level 139 139 Potassium Level 3.6 3.8 Chloride Level 108 106 Carbon Dioxide Level 22 22 Anion Gap 9 11 Blood Urea Nitrogen 12 13 Creatinine 0.92 0.81 Est Glomerular Filtrat > 60 > 60 Rate mL/min Glucose Level 119 147 Calcium Level 7.6 L 8.8 Total Bilirubin 0.5 0.7 Direct Bilirubin 0.00 0.00 Indirect Bilirubin 0.5 0.7 Aspartate Amino Transf (AST/SGOT) 61 H 58 H Alanine 45 43 Aminotransferase (ALT/SGPT) Alkaline Phosphatase 53 44 Total Protein 6.5 6.8 Albumin 3.4 3.9 Globulin 3.10 2.90 Albumin/Globulin Ratio 1.09 1.34 Lab Scanned Report REFERENCE LAB Medications Medication Current Medications Hydromorphone HCl (Dilaudid) 0.2 mg Q2H PRN IV .PAIN 1-5; Start 08/31/18 at 14:00 Hydromorphone HCl (Dilaudid) 0.4 mg Q2H PRN IV .PAIN 6-10; Start 08/31/18 at 14:00 Ketorolac Tromethamine (Toradol) 30 mg Q6H PRN IV .PAIN 6-10; Start 08/31/18 at 14:00; Stop 09/03/18 at 13:59 Nalbuphine HCl (Nubain) 10 mg Q4H PRN IV .PRURITUS; Start 08/31/18 at 14:00 Ondansetron HCl (Zofran Inj) 4 mg Q6H PRN IV .NAUSEA/VOMITING; Start 08/31/18 at 14:00 Trimethobenzamide HCl (Tigan) 200 mg Q6H PRN IM .NAUSEA/VOMITING; Start 08/31/18 at 14:00 Naloxone HCl (Narcan) 0.2 mg Q2M PRN IV .RESP RATE; Start 08/31/18 at 14:00 Miscellaneous Information (* Miscellaneous Pharmacy Order) DURAMORPH: 0.1 MG SP I... GIVEN NEURAXIAL XX ; Start 08/31/18 at 14:00 Metronidazole 100 ml @ 100 mls/hr Q8H IVPB Last administered on 09/01/18at 11:03; Admin Dose 100 MLS/HR; Start 08/31/18 at 18:30; Stop 09/01/18 at 18:29 Lactated Ringer's 1,000 ml @ 100 mls/hr Q10H IV Last administered on 09/01/18at 09:04; Admin Dose 100 MLS/HR; Start 08/31/18 at 17:23 Naloxone HCl (Narcan) 0.2 mg Q2M PRN IV RR 8 BREATHS/MIN OR LESS; Start 08/31/18 at 17:30 Hydromorphone HCl (Dilaudid ADVANCED PRACTICE NURSE PSYCHOTHERAPIST) Q4PCA IV Last administered on 09/01/18at 03:00; Admin Dose 6 MG; Start 08/31/18 at 17:30 Acetaminophen (Ofirmev 1000mg/ 100ml Iv) 1,000 mg Q6H PRN IV FEVER GREATER THAN 100.6; Start 08/31/18 at 23:00; Stop 09/01/18 at 22:59 Fluticasone Propionate (Flonase 0.05% Nasal) 1 spray DAILY NASAL ; Start 09/01/18 at 09:00 Hydralazine HCl (Apresoline) 20 mg Q6H PRN IV >160/95; Start 08/31/18 at 23:00 Diphenhydramine HCl (Benadryl) 50 mg Q6H PRN PO ITCHING Last administered on 09/01/18at 11:51; Admin Dose 50 MG; Start 09/01/18 at 05:30 Karen RUDOLPH September 01, 2018 14:36
[2018-09-01 16:01] VITALS: BP 116/60; PULSE 78; RESP 18
[2018-09-01 19:45] VITALS: BP 124/75; PULSE 86; RESP 18
[2018-09-01] MEDS: CALCIUM CARBONATE 500 MG CHEW TAB PO PRN (23:09)
[2018-09-02] MEDS: LACTATED RINGER'S 1,000 ML IV SCH ×2 (00:06→08:56)
[2018-09-02] MEDS: DIPHENHYDRAMINE 50 MG CAP PO PRN ×2 (00:14→06:00)
[2018-09-02] MEDS: HYDROmorphONE 0.2 MG/ML PCA IV SCH (04:41)
[2018-09-02] MEDS: CALCIUM CARBONATE 500 MG CHEW TAB PO PRN ×2 (06:00→15:20)
[2018-09-02 07:13] VITALS: BP 146/90; PULSE 92; RESP 18
[2018-09-02] MEDS: FLUTICASONE 0.05% 16 GM NAS SPRAY NASAL SCH (08:55)
--- NOTE | 2018-09-02 11:58 | PN ---
Date/Time of Note Date/Time of Note DATE: 09/02/18 TIME: 11:58 Assessment/Plan VTE Prophylaxis Risk score (from Ns)>0 risk: 7 SCD applied (from Ns): Yes Pharmacological prophylaxis: LMWH Lines/Catheters IV Catheter Type (from Nrsg): Peripheral IV Urinary Cath still in place: Yes Reason Cath still needed: skin wounds contaminated by urine Assessment/Plan Hospital Course 1. Colon cancer, status post laparoscopic converted to open rectosigmoidectomy with low pelvic anastomosis. - Continue postop care as per Dr. Moya. 2. Hypertension. 3. Dyslipidemia. 4. Allergic rhinitis. PLAN: - n.p.o. and will be started on IV fluid. - IV Cipro and Flagyl as per protocol. 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 - SCD for DVT prophylaxis. - For nausea, the patient is on Tigan on p.r.n. basis. - We will hold off on p.o. medication. - IV hydralazine on p.r.n. basis for hypertension. We will continue to follow. Result Diagram: 09/01/180 09/01/18439 Subjective 24 Hr Interval Summary Free Text/Dictation Patient complain of abdominal pain Exam/Review of Systems Exam Vitals Vital Signs Date Temp Pulse Resp B/P (MAP) Pulse Ox O2 O2 Flow FiO2 Time Delivery Rate 09/02/18 99.0 92 18 146/90 89 07:13 (108) 09/01/18 Room Air 16:01 08/31/18 2.0 22:12 Intake and Output 09/01/18 09/01/18 09/02/18 1515:00 23:00 07:00 IntakeIntake Total 600 ml 1450 ml 500 ml OutputOutput Total 3600 ml 1100 ml BalanceBalance 600 ml -2150 ml -600 ml Constitutional: well developed Head: normocephalic, atraumatic Neck: supple Respiratory: clear to auscultation Cardiovascular: regular rate and rhythm Gastrointestinal: soft, non-tender Extremities: normal pulses Medications Medication Current Medications Hydromorphone HCl (Dilaudid) 0.2 mg Q2H PRN IV .PAIN 1-5; Start 08/31/18 at 14:00 Hydromorphone HCl (Dilaudid) 0.4 mg Q2H PRN IV .PAIN 6-10; Start 08/31/18 at 14:00 Ketorolac Tromethamine (Toradol) 30 mg Q6H PRN IV .PAIN 6-10; Start 08/31/18 at 14:00; Stop 09/03/18 at 13:59 Nalbuphine HCl (Nubain) 10 mg Q4H PRN IV .PRURITUS; Start 08/31/18 at 14:00 Ondansetron HCl (Zofran Inj) 4 mg Q6H PRN IV .NAUSEA/VOMITING; Start 08/31/18 at 14:00 Trimethobenzamide HCl (Tigan) 200 mg Q6H PRN IM .NAUSEA/VOMITING; Start 08/31/18 at 14:00 Naloxone HCl (Narcan) 0.2 mg Q2M PRN IV .RESP RATE; Start 08/31/18 at 14:00 Miscellaneous Information (* Miscellaneous Pharmacy Order) DURAMORPH: 0.1 MG SPI... 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
[2018-09-02] MEDS: D5W-0.45 NACL + KCL 20 MEQ 1,000 ML IV SCH (15:20)
[2018-09-02] MEDS: KETOROLAC 30 MG INJ IV PRN (18:30)
[2018-09-02 20:16] VITALS: BP 141/64; PULSE 71; RESP 20
--- NOTE | 2018-09-02 20:44 | PN ---
DATE: 09/02/2018 Postop day #2 status post laparoscopic converted to open rectosigmoid resection for the cancer. SUBJECTIVE: Complains of inability to pass gas. OBJECTIVE: GENERAL: Awake, alert, oriented, lying down in the bed. VITAL SIGNS: Temperature 99, heart rate 92, respiration 18, blood pressure 146/90, saturation 95% room air. HEART: Regular. LUNGS: Decreased breathing sound on bases. ABDOMEN: Very protruded with fat and round belly. Also, the whole epigastric area and right upper and left upper quadrant is very tympanic. Bowel sound present but hypoactive. EXTREMITIES: Legs negative. ASSESSMENT: Postop #2 rectosigmoid resection, end to end anastomosis, open laparotomy. The patient is on clear liquids, but has not had bowel movement and has not been passing gas. No vomiting, no nausea. Abdomen very distended, tympanic. PLAN: We will get a KUB right now and evaluate for the possible gastric dilatation and we will make a decision. Dictated By: MAGALY HANKS/NARDA Conf#: [id number] DID#: [id number] MTDD
[2018-09-03] MEDS: D5W-0.45 NACL + KCL 20 MEQ 1,000 ML IV SCH ×3 (00:25→21:42)
[2018-09-03] MEDS: KETOROLAC 30 MG INJ IV PRN ×4 (00:25→23:43)
[2018-09-03 00:46] VITALS: BP 129/82; PULSE 72; RESP 18
[2018-09-03] MEDS: PANTOPRAZOLE 40 MG INJ IV SCH ×2 (04:46→16:59)
[2018-09-03] MEDS: LORAZEPAM 2 MG INJ IV PRN ×3 (04:46→23:46)
[2018-09-03 08:00] VITALS: BP 158/100; PULSE 84; RESP 18
[2018-09-03] MEDS: FLUTICASONE 0.05% 16 GM NAS SPRAY NASAL SCH (09:00)
[2018-09-03] MEDS: CALCIUM CARBONATE 500 MG CHEW TAB PO PRN ×2 (09:35→23:55)
--- NOTE | 2018-09-03 11:12 | PN ---
Date/Time of Note Date/Time of Note DATE: 09/03/18 TIME: 11:11 Assessment/Plan VTE Prophylaxis Risk score (from Ns)>0 risk: 6 SCD applied (from [facility]): No SCD contraindicated: other Pharmacological prophylaxis: LMWH Lines/Catheters IV Catheter Type (from Nrsg): Peripheral IV Urinary Cath still in place: No Assessment/Plan Hospital Course 1. Colon cancer, status post laparoscopic converted to open rectosigmoidectomy with low pelvic anastomosis. - Continue postop care as per Dr. Moya. 2. Hypertension. 3. Dyslipidemia. 4. Allergic rhinitis. PLAN: - n.p.o. and will be started on IV fluid. - IV Cipro and Flagyl as per protocol. 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 - SCD for DVT prophylaxis. - For nausea, the patient is on Tigan on p.r.n. basis. - We will hold off on p.o. medication. - IV hydralazine on p.r.n. basis for hypertension. We will continue to follow. Result Diagram: 09/01/18 0440 09/01/18 0440 Subjective 24 Hr Interval Summary Free Text/Dictation Patient having severe abdominal pain, KUB show bowel obstruction Exam/Review of Systems Exam Vitals Vital Signs Date Temp Pulse Resp B/P (MAP) Pulse Ox O2 O2 Flow FiO2 Time Delivery Rate 09/03/18 98.0 84 18 158/100 95 08:00 (119) 09/03/18 2.0 05:00 09/03/18 Nasal 00:46 Cannula Intake and Output 09/02/18 09/02/18 09/03/18 1515:00 23:00 07:00 IntakeIntake Total 920 ml 1900 ml BalanceBalance 920 ml 1900 ml Constitutional: well developed Head: normocephalic, atraumatic Neck: supple Respiratory: diminished breath sounds Cardiovascular: regular rate and rhythm Gastrointestinal: soft, non-tender Extremities: normal pulses Medications Medication Current Medications Hydromorphone HCl (Dilaudid) 0.2 mg Q2H PRN IV .PAIN 1-5; Start 08/31/18 at 14:00 Hydromorphone HCl (Dilaudid) 0.4 mg Q2H PRN IV .PAIN 6-10; Start 08/31/18 at 14:00 Nalbuphine HCl (Nubain) 10 mg Q4H PRN IV .PRURITUS; Start 08/31/18 at 14:00 Ondansetron HCl (Zofran Inj) 4 mg Q6H PRN IV .NAUSEA/VOMITING Last administered on 09/03/18at 09:35; Admin Dose 4 MG; Start 08/31/18 at 14:00 Trimethobenzamide HCl (Tigan) 200 mg Q6H PRN IM .NAUSEA/VOMITING; Start 08/31/18 at 14:00 Naloxone HCl (Narcan) 0.2 mg Q2M PRN IV .RESP RATE; Start 08/31/18 at 14:00 Miscellaneous Information (* Miscellaneous Pharmacy Order) DURAMORPH: 0.1 MG SPI... GIVEN NEURAXIAL XX ; Start 08/31/18 at 14:00 Naloxone HCl (Narcan) 0.2 mg Q2M PRN IV RR 8 BREATHS/MIN OR LESS; Start 08/31/18 at 17:30 Hydromorphone HCl (Dilaudid DRY PAN CHARGER) Q4PCA IV Last administered on 09/02/18at 04:41; Admin Dose 6 MG; Start 08/31/18 at 17:30 Fluticasone Propionate (Flonase 0.05% Nasal) 1 spray DAILY NASAL ; Start 09/01/18 at 09:00 Hydralazine HCl (Apresoline) 20 mg Q6H PRN IV >160/95; Start 08/31/18 at 23:00 Diphenhydramine HCl (Benadryl) 50 mg Q6H PRN PO ITCHING Last administered on 09/02/18at 06:00; Admin Dose 50 MG; Start 09/01/18 at 05:30 Calcium Carbonate (Tums) 500 mg Q6 PRN PO heartburn Last administered on 09/03/18at 09:35; Admin Dose 500 MG; Start 09/01/18 at 23:30 Potassium Chloride/Dextrose/ Sod Cl 1,000 ml @ 100 mls/hr Q10H IV Last administered on 09/03/18at 09:35; Admin Dose 100 MLS/HR; Start 09/02/18 at 14:30 Ketorolac Tromethamine (Toradol) 30 mg Q6H PRN IV PAIN LEVEL 1-3 Last administered on 09/03/18at 00:25; Admin Dose 30 MG; Start 09/02/18 at 16:30; Stop 09/05/18 at 16:29 Lorazepam (Ativan) 1 mg Q6H PRN IV ANXIETY Last administered on 09/03/18 04:46; Admin Dose 1 MG; Start 09/03/18 at 04:20 Pantoprazole (Protonix Iv) 40 mg BID@0600,1800 IV Last administered on 09/03/18 04:46; Admin Dose 40 MG; Start 09/03/18 at 04:25 MARAL VILLASENOR Sep 03, 2018 11:12
--- NOTE | 2018-09-03 15:09 | PN ---
DATE: 09/03/2018 Postop day #3 status post laparotomy, rectosigmoid resection. SUBJECTIVE: Still is not comfortable because of the abdominal bloating and distention, though has pa ssed minimal amount of gas today and a small amount of bowel movement. The patient has stopped by hi s decision to take any Dilaudid considering that it can cause ileus so for the pain only gets Toradol . OBJECTIVE: GENERAL: Awake, alert, oriented, slightly sleepy. VITAL SIGNS: Temperature 98, heart rate 84, respiration 18, blood pressure 158/100, oximetry 95% on 2-liter nasal cannula. HEART: Regular, rate about 80 to 85. LUNGS: Clear. Decreased breathing sound at bases. ABDOMEN: Still is distended, tympanic in yesterday's exam, right and left upper quadrant, but it is softer than yesterday. Bowel sounds are hypoactive. EXTREMITIES: Legs have no calf tenderness. LABORATORY DATA: No lab has been done today. IMPRESSION: The patient is post rectosigmoid resection and end-to-end anastomosis. The patient had postop ileus, minimal gas passage today and minimal bowel movement. The patient does not want NG tub e; therefore, we will observe and correct electrolytes which are abnormal. I encouraged to get out o f bed and walk around. Continue current treatment. Dictated By: MAGALY LANGLEY MD PS/NTS Conf#: [id number] DID#: [id number] CC: EARNEST RUDOLPH MD; LEW VIRGEN MD;*EndCC*
[2018-09-03] MEDS ORDERED: ACETAMINOPHEN 325 MG TAB PO PRN (19:50)
[2018-09-03 20:12] VITALS: BP 128/84; PULSE 75; RESP 18
[2018-09-04 01:30] VITALS: BP 136/91; PULSE 74; RESP 18
[2018-09-04] MEDS: PANTOPRAZOLE 40 MG INJ IV SCH ×2 (06:15→18:24)
[2018-09-04] MEDS: KETOROLAC 30 MG INJ IV PRN ×3 (06:19→18:25)
[2018-09-04 07:59] VITALS: BP 118/78; PULSE 60; RESP 18
--- NOTE | 2018-09-04 08:57 | PN ---
Date/Time of Note Date/Time of Note DATE: 09/04/18 TIME: 08:56 Assessment/Plan VTE Prophylaxis Risk score (from Ns)>0 risk: 6 SCD applied (from Ns): Yes Pharmacological prophylaxis: other Lines/Catheters IV C[facility]ter Type (from [facility]): Peripheral IV Urinary Cath still in place: No Assessment/Plan Assessment/Plan s/p lap conv to open rectosigmoidectomy had some distention which has resolved patient wants to wait another day for clear liquids Result Diagram: 09/04/18 0443 09/04/18 0444 Results 24hrs Laboratory Tests Test 09/03/18 13:08 09/04/18 04:43 09/04/18 04:44 White Blood Count 12.3 #H 10.2 Red Blood Count 4.14 L 4.06 L Hemoglobin 11.9 L 11.7 L Hematocrit 36.2 L 35.6 L Mean Corpuscular Volume 87.4 87.7 Mean Corpuscular Hemoglobin 28.7 L 28.8 L Mean Corpuscular Hemoglobin Concent 32.9 32.9 Red Cell Distribution Width 14.5 14.0 Platelet Count 261 295 Mean Platelet Volume 9.8 10.5 H Immature Granulocytes % 0.300 0.400 Neutrophils % 72.1 61.1 Lymphocytes % 14.7 L 23.7 Monocytes % 12.2 H 11.4 H Eosinophils % 0.3 2.8 Basophils % 0.4 0.6 Nucleated Red Blood Cells % 0.0 0.0 Immature Granulocytes # 0.040 H 0.040 H Neutrophils # 8.8 H 6.2 Lymphocytes # 1.8 2.4 Monocytes # 1.5 H 1.2 H Eosinophils # 0.0 0.3 Basophils # 0.1 0.1 Nucleated Red Blood Cells # 0.0 0.0 Sodium Level 140 142 Potassium Level 3.9 3.4 L Chloride Level 106 106 Carbon Dioxide Level 28 28 Anion Gap 6 8 Blood Urea Nitrogen 8 10 Creatinine 0.80 0.90 Est Glomerular Filtrat Rate mL/min > 60 > 60 Glucose Level 119 116 Calcium Level 8.9 8.8 Subjective 24 Hr Interval Summary Free Text/Dictation patient was distended over the weekend, this has resolved and he feels better Exam/Review of Systems Exam Vitals Vital Signs Date Temp Pulse Resp B/P (MAP) Pulse Ox O2 O2 Flow FiO2 Time Delivery Rate 09/04/18 98.2 60 18 118/78 92 Room Air 07:59 (91) 09/03/18 2.0 20:00 Intake and Output 09/03/18 09/03/18 09/04/18 1515:00 23:00 07:00 IntakeIntake Total 500 ml 700 ml OutputOutput Total 500 ml BalanceBalance 500 ml 200 ml Exam abd soft nontender, no peritoneal signs Results Results 24hrs Laboratory Tests Test 09/03/18 13:08 09/04/18 04:43 09/04/18 04:44 White Blood Count 12.3 #H 10.2 Red Blood Count 4.14 L 4.06 L Hemoglobin 11.9 L 11.7 L Hematocrit 36.2 L 35.6 L Mean Corpuscular Volume 87.4 87.7 Mean Corpuscular Hemoglobin 28.7 L 28.8 L Mean Corpuscular Hemoglobin Concent 32.9 32.9 Red Cell Distribution Width 14.5 14.0 Platelet Count 261 295 Mean Platelet Volume 9.8 10.5 H Immature Granulocytes % 0.300 0.400 Neutrophils % 72.1 61.1 Lymphocytes % 14.7 L 23.7 Monocytes % 12.2 H 11.4 H Eosinophils % 0.3 2.8 Basophils % 0.4 0.6 Nucleated Red Blood Cells % 0.0 0.0 Immature Granulocytes # 0.040 H 0.040 H Neutrophils # 8.8 H 6.2 Lymphocytes # 1.8 2.4 Monocytes # 1.5 H 1.2 H Eosinophils # 0.0 0.3 Basophils # 0.1 0.1 Nucleated Red Blood Cells # 0.0 0.0 Sodium Level 140 142 Potassium Level 3.9 3.4 L Chloride Level 106 106 Carbon Dioxide Level 28 28 Anion Gap 6 8 Blood Urea Nitrogen 8 10 Creatinine 0.80 0.90 Est Glomerular Filtrat Rate mL/min > 60 > 60 Glucose Level 119 116 Calcium Level 8.9 8.8 Medications Medication Current Medications Hydromorphone HCl (Dilaudid) 0.2 mg Q2H PRN IV .PAIN 1-5; Start 08/31/18 at 14:00 Hydromorphone HCl (Dilaudid) 0.4 mg Q2H PRN IV .PAIN 6-10; Start 08/31/18 at 14:00 Nalbuphine HCl (Nubain) 10 mg Q4H PRN IV .PRURITUS; Start 08/31/18 at 14:00 Ondansetron HCl (Zofran Inj) 4 mg Q6H PRN IV .NAUSEA/VOMITING Last administered on 09/03/18at 09:35; Admin Dose 4 MG; Start 08/31/18 at 14:00 Trimethobenzamide HCl (Tigan) 200 mg Q6H PRN IM .NAUSEA/VOMITING; Start 08/31/18 at 14:00 Naloxone HCl (Narcan) 0.2 mg Q2M PRN IV .RESP RATE; Start 08/31/18 at 14:00 Miscellaneous Information (* Miscellaneous Pharmacy Order) DURAMORPH: 0.1 MG SPI... 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 IV Last administered on 09/02/18at 04:41; Admin Dose 6 MG; Start 08/31/18 at 17:30 Fluticasone Propionate (Flonase 0.05% Nasal) 1 spray DAILY NASAL ; Start 09/01/18 at 09:00 Hydralazine HCl (Apresoline) 20 mg Q6H PRN IV >160/95; Start 08/31/18 at 23:00 Diphenhydramine HCl (Benadryl) 50 mg Q6H PRN PO ITCHING Last administered on 09/02/18at 06:00; Admin Dose 50 MG; Start 09/01/18 at 05:30 Calcium Carbonate (Tums) 500 mg Q6 PRN PO heartburn Last administered on 09/03/18at 23:55; Admin Dose 500 MG; Start 09/01/18 at 23:30 Potassium Chloride/Dextrose/ Sod Cl 1,000 ml @ 100 mls/hr Q10H IV Last administered on 09/03/18at 21:42; Admin Dose 100 MLS/HR; Start 09/02/18 at 14:30 Ketorolac Tromethamine (Toradol) 30 mg Q6H PRN IV PAIN LEVEL 1-3 Last administered on 09/04/18at 06:19; Admin Dose 30 MG; Start 09/02/18 at 16:30; Stop 09/05/18 at 16:29 Lorazepam (Ativan) 1 mg Q6H PRN IV ANXIETY Last administered on 09/03/18at 23:46; Admin Dose 1 MG; Start 09/03/18 at 04:20 Pantoprazole (Protonix Iv) 40 mg BID@0600,1800 IV Last administered on 09/04/18at 06:15; Admin Dose 40 MG; Start 09/03/18 at 04:25 Karen RUDOLPH Sep 04, 2018 08:57
[2018-09-04] MEDS: FLUTICASONE 0.05% 16 GM NAS SPRAY NASAL SCH (09:00)
[2018-09-04] MEDS: D5W-0.45 NACL + KCL 20 MEQ 1,000 ML IV SCH ×3 (09:28→19:42)
[2018-09-04] MEDS: LORAZEPAM 2 MG INJ IV PRN ×2 (12:35→21:57)
[2018-09-04 14:36] VITALS: BP 126/80; PULSE 68; RESP 18
--- NOTE | 2018-09-04 15:09 | PN ---
Date/Time of Note Date/Time of Note DATE: 09/04/18 TIME: 15:03 Assessment/Plan VTE Prophylaxis Risk score (from Ns)>0 risk: 5 SCD applied (from Ns): Yes Pharmacological prophylaxis: NA/contraindicated Pharm contraindication: surgical contra Lines/Catheters IV C[facility]ter Type (from [facility]): Peripheral IV Urinary Cath still in place: No Assessment/Plan Hospital Course Patient had developed ileus over the weekend, refused NGT, continue n.p.o. except ice chips, continue IV fluids, patient had BM today, positive flatus, pain is well controlled with Toradol. Assessment/Plan - Possible ileus, resolving - Colon cancer, status post laparoscopic converted to open rectosigmoidectomy with low pelvic anastomosis. - Hypertension. - Dyslipidemia. - Allergic rhinitis. - Obesity with BMI of 36.9 Further recommendations based on clinical course. Plan of care discussed with Dr. Pastor. Result Diagram: 09/04/18 0443 09/04/18 0444 Results 24hrs Laboratory Tests Test 09/04/18 04:43 09/04/18 04:44 White Blood Count 10.2 Red Blood Count 4.06 L Hemoglobin 11.7 L Hematocrit 35.6 L Mean Corpuscular Volume 87.7 Mean Corpuscular Hemoglobin 28.8 L Mean Corpuscular Hemoglobin Concent 32.9 Red Cell Distribution Width 14.0 Platelet Count 295 Mean Platelet Volume 10.5 H Immature Granulocytes % 0.400 Neutrophils % 61.1 Lymphocytes % 23.7 Monocytes % 11.4 H Eosinophils % 2.8 Basophils % 0.6 Nucleated Red Blood Cells % 0.0 Immature Granulocytes # 0.040 H Neutrophils # 6.2 Lymphocytes # 2.4 Monocytes # 1.2 H Eosinophils # 0.3 Basophils # 0.1 Nucleated Red Blood Cells # 0.0 Sodium Level 142 Potassium Level 3.4 L Chloride Level 106 Carbon Dioxide Level 28 Anion Gap 8 Blood Urea Nitrogen 10 Creatinine 0.90 Est Glomerular Filtrat Rate mL/min > 60 Glucose Level 116 Calcium Level 8.8 Exam/Review of Systems Exam Vitals Vital Signs Date Temp Pulse Resp B/P (MAP) Pulse Ox O2 O2 Flow FiO2 Time Delivery Rate 09/04/18 97.8 68 18 126/80 90 Room Air 14:36 (95) 09/03/18 2.0 20:00 Intake and Output 09/03/18 09/03/18 09/04/18 1515:00 23:00 07:00 IntakeIntake Total 500 ml 700 ml OutputOutput Total 500 ml BalanceBalance 500 ml 200 ml Constitutional: alert, oriented Neck: supple Respiratory: clear to auscultation Cardiovascular: nl pulses Gastrointestinal: soft, other (s/p surgery) Musculoskeletal: nl extremities to inspection Extremities: normal pulses Neurological: nl mental status Skin: nl turgor Results Results 24hrs Laboratory Tests Test 09/04/18 04:43 09/04/18 04:44 White Blood Count 10.2 Red Blood Count 4.06 L Hemoglobin 11.7 L Hematocrit 35.6 L Mean Corpuscular Volume 87.7 Mean Corpuscular Hemoglobin 28.8 L Mean Corpuscular Hemoglobin Concent 32.9 Red Cell Distribution Width 14.0 Platelet Count 295 Mean Platelet Volume 10.5 H Immature Granulocytes % 0.400 Neutrophils % 61.1 Lymphocytes % 23.7 Monocytes % 11.4 H Eosinophils % 2.8 Basophils % 0.6 Nucleated Red Blood Cells % 0.0 Immature Granulocytes # 0.040 H Neutrophils # 6.2 Lymphocytes # 2.4 Monocytes # 1.2 H Eosinophils # 0.3 Basophils # 0.1 Nucleated Red Blood Cells # 0.0 Sodium Level 142 Potassium Level 3.4 L Chloride Level 106 Carbon Dioxide Level 28 Anion Gap 8 Blood Urea Nitrogen 10 Creatinine 0.90 Est Glomerular Filtrat Rate mL/min > 60 Glucose Level 116 Calcium Level 8.8 Medications Medication Current Medications Hydromorphone HCl (Dilaudid) 0.2 mg Q2H PRN IV .PAIN 1-5; Start 08/31/18 at 14:00 Hydromorphone HCl (Dilaudid) 0.4 mg Q2H PRN IV .PAIN 6-10; Start 08/31/18 at 14:00 Nalbuphine HCl (Nubain) 10 mg Q4H PRN IV .PRURITUS; Start 08/31/18 at 14:00 Ondansetron HCl (Zofran Inj) 4 mg Q6H PRN IV .NAUSEA/VOMITING Last administered on 09/03/18at 09:35; Admin Dose 4 MG; Start 08/31/18 at 14:00 Trimethobenzamide HCl (Tigan) 200 mg Q6H PRN IM .NAUSEA/VOMITING; Start 08/31/18 at 14:00 Naloxone HCl (Narcan) 0.2 mg Q2M PRN IV .RESP RATE; Start 08/31/18 at 14:00 Miscellaneous Information (* Miscellaneous Pharmacy Order) DURAMORPH: 0.1 MG SPI... GIVEN NEURAXIAL XX ; Start 08/31/18 at 14:00 Naloxone HCl (Narcan) 0.2 mg Q2M PRN IV RR 8 BREATHS/MIN OR LESS; Start 08/31/18 at 17:30 Fluticasone Propionate (Flonase 0.05% Nasal) 1 spray DAILY NASAL ; Start 09/01/18 at 09:00 Hydralazine HCl (Apresoline) 20 mg Q6H PRN IV >160/95; Start 08/31/18 at 23:00 Diphenhydramine HCl (Benadryl) 50 mg Q6H PRN PO ITCHING Last administered on 09/02/18at 06:00; Admin Dose 50 MG; Start 09/01/18 at 05:30 Calcium Carbonate (Tums) 500 mg Q6 PRN PO heartburn Last administered on 09/03/18at 23:55; Admin Dose 500 MG; Start 09/01/18 at 23:30 Potassium Chloride/Dextrose/ Sod Cl 1,000 ml @ 100 mls/hr Q10H IV Last administered on 09/04/18at 09:28; Admin Dose 100 MLS/HR; Start 09/02/18 at 14:30 Ketorolac Tromethamine (Toradol) 30 mg Q6H PRN IV PAIN LEVEL 1-3 Last administered on 09/04/18at 12:35; Admin Dose 30 MG; Start 09/02/18 at 16:30; Stop 09/05/18 at 16:29 Lorazepam (Ativan) 1 mg Q6H PRN IV ANXIETY Last administered on 09/04/18at 12:35; Admin Dose 1 MG; Start 09/03/18 at 04:20 Pantoprazole (Protonix Iv) 40 mg BID@0600,1800 IV Last administered on 09/04/18at 06:15; Admin Dose 40 MG; Start 09/03/18 at 04:25 Acetaminophen (Tylenol Tab) 650 mg Q6H PRN PO MILD PAIN(1-3)OR ELEVATED TEMP; Start 09/04/18 at 09:00 ADDIS BACA Sep 04, 2018 15:09
--- NOTE | 2018-09-04 17:29 | RADRPT ---
Vent Rate: 72 bpm RR Interval: 836 msec GA Interval: 161 msec QRS Duration: 108 msec QT Interval: 406 msec QTC Interval: 444 msec P-R-T [place]: 63 - 40 - -2 degrees Sinus rhythm...normal Electronically Signed By: Bean [address]
[2018-09-04 19:37] VITALS: BP 122/81; PULSE 87; RESP 18
[2018-09-05] MEDS: KETOROLAC 30 MG INJ IV PRN ×2 (02:11→09:30)
[2018-09-05] MEDS: CALCIUM CARBONATE 500 MG CHEW TAB PO PRN ×2 (02:13→16:33)
[2018-09-05] MEDS: ACETAMINOPHEN 325 MG TAB PO PRN ×3 (02:13→21:43)
[2018-09-05 02:26] VITALS: BP 130/82; PULSE 79; RESP 18
[2018-09-05] MEDS: D5W-0.45 NACL + KCL 20 MEQ 1,000 ML IV SCH ×3 (02:30→12:30)
[2018-09-05] MEDS: PANTOPRAZOLE 40 MG INJ IV SCH ×2 (05:12→17:46)
[2018-09-05 08:02] VITALS: BP 129/88; PULSE 65; RESP 18
[2018-09-05] MEDS: FLUTICASONE 0.05% 16 GM NAS SPRAY NASAL SCH (09:29)
[2018-09-05] MEDS: LORAZEPAM 2 MG INJ IV PRN (09:30)
--- NOTE | 2018-09-05 09:38 | PN ---
Date/Time of Note Date/Time of Note DATE: 09/05/18 TIME: 09:37 Assessment/Plan VTE Prophylaxis Risk score (from Ns)>0 risk: 4 SCD applied (from Ns): Yes Pharmacological prophylaxis: other Lines/Catheters [facility]from [facility] Peripheral IV Urinary Cath still in place: No Assessment/Plan Assessment/Plan lap converted to open rectosigmoidectomy start mechanical soft diet and possible dc home tomorrow Result Diagram: 09/05/187 09/05/18 0437 Results 24hrs Laboratory Tests Test 09/05/18 04:37 White Blood Count 11.4 H Red Blood Count 4.23 L Hemoglobin 12.1 L Hematocrit 36.6 L Mean Corpuscular Volume 86.5 Mean Corpuscular Hemoglobin 28.6 L Mean Corpuscular Hemoglobin Concent 33.1 Red Cell Distribution Width 13.9 Platelet Count 332 Mean Platelet Volume 10.6 H Immature Granulocytes % 0.400 Neutrophils % 63.4 Lymphocytes % 21.9 Monocytes % 10.9 Eosinophils % 2.8 Basophils % 0.6 Nucleated Red Blood Cells % 0.0 Immature Granulocytes # 0.040 H Neutrophils # 7.2 Lymphocytes # 2.5 Monocytes # 1.2 H Eosinophils # 0.3 Basophils # 0.1 Nucleated Red Blood Cells # 0.0 Sodium Level 140 Potassium Level 3.3 L Chloride Level 107 Carbon Dioxide Level 24 Anion Gap 9 Blood Urea Nitrogen 8 Creatinine 0.89 Est Glomerular Filtrat Rate mL/min > 60 Glucose Level 112 Calcium Level 8.7 Subjective 24 Hr Interval Summary Free Text/Dictation patient doing well, no nausea or vomiting, had bowel movements Exam/Review of Systems Exam Vitals Vital Signs Date Temp Pulse Resp B/P (MAP) Pulse Ox O2 O2 Flow FiO2 Time Delivery Rate 09/05/18 98.3 65 18 129/88 97 Room Air 08:02 (102) 09/05/18 2.0 03:50 Intake and Output 09/04/18 09/04/18 09/05/18 1515:00 23:00 07:00 IntakeIntake Total 300 ml 950 ml 950 ml OutputOutput Total 1100 ml 400 ml BalanceBalance -800 ml 550 ml 950 ml Exam c/d/i Results Results 24hrs Laboratory Tests Test 09/05/18 04:37 White Blood Count 11.4 H Red Blood Count 4.23 L Hemoglobin 12.1 L Hematocrit 36.6 L Mean Corpuscular Volume 86.5 Mean Corpuscular Hemoglobin 28.6 L Mean Corpuscular Hemoglobin Concent 33.1 Red Cell Distribution Width 13.9 Platelet Count 332 Mean Platelet Volume 10.6 H Immature Granulocytes % 0.400 Neutrophils % 63.4 Lymphocytes % 21.9 Monocytes % 10.9 Eosinophils % 2.8 Basophils % 0.6 Nucleated Red Blood Cells % 0.0 Immature Granulocytes # 0.040 H Neutrophils # 7.2 Lymphocytes # 2.5 Monocytes # 1.2 H Eosinophils # 0.3 Basophils # 0.1 Nucleated Red Blood Cells # 0.0 Sodium Level 140 Potassium Level 3.3 L Chloride Level 107 Carbon Dioxide Level 24 Anion Gap 9 Blood Urea Nitrogen 8 Creatinine 0.89 Est Glomerular Filtrat Rate mL/min > 60 Glucose Level 112 Calcium Level 8.7 Medications Medication Current Medications Hydromorphone HCl (Dilaudid) 0.2 mg Q2H PRN IV .PAIN 1-5; Start 08/31/18 at 14:00 Hydromorphone HCl (Dilaudid) 0.4 mg Q2H PRN IV .PAIN 6-10; Start 08/31/18 at 14:00 Nalbuphine HCl (Nubain) 10 mg Q4H PRN IV .PRURITUS; Start 08/31/18 at 14:00 Ondansetron HCl (Zofran Inj) 4 mg Q6H PRN IV .NAUSEA/VOMITING Last administered on 09/03/18at 09:35; Admin Dose 4 MG; Start 08/31/18 at 14:00 Trimethobenzamide HCl (Tigan) 200 mg Q6H PRN IM .NAUSEA/VOMITING; Start 08/31/18 at 14:00 Naloxone HCl (Narcan) 0.2 mg Q2M PRN IV .RESP RATE; Start 08/31/18 at 14:00 Miscellaneous Information (* Miscellaneous Pharmacy Order) DURAMORPH: 0.1 MG SPI... GIVEN NEURAXIAL XX ; Start 08/31/18 at 14:00 Naloxone HCl (Narcan) 0.2 mg Q2M PRN IV RR 8 BREATHS/MIN OR LESS; Start 08/31/18 at 17:30 Fluticasone Propionate (Flonase 0.05% Nasal) 1 spray DAILY NASAL Last administered on 6/4/19at 09:29; Admin Dose 1 SPRAY; Start 09/01/18 at 09:00 Hydralazine HCl (Apresoline) 20 mg Q6H PRN IV >160/95; Start 08/31/18 at 23:00 Diphenhydramine HCl (Benadryl) 50 mg Q6H PRN PO ITCHING Last administered on 09/02/18 06:00; Admin Dose 50 MG; Start 09/01/18 at 05:30 Calcium Carbonate (Tums) 500 mg Q6 PRN PO heartburn Last administered on 09/05/18 02:13; Admin Dose 500 MG; Start 09/01/18 at 23:30 Potassium Chloride/Dextrose/ Sod Cl 1,000 ml @ 100 mls/hr Q10H IV Last administered on 09/05/18 05:13; Admin Dose 100 MLS/HR; Start 09/02/18 at 14:30 Ketorolac Tromethamine (Toradol) 30 mg Q6H PRN IV PAIN LEVEL 1-3 Last administered on 09/05/18 09:30; Admin Dose 30 MG; Start 09/02/18 at 16:30; Stop 09/05/18 at 16:29 Lorazepam (Ativan) 1 mg Q6H PRN IV ANXIETY Last administered on 09/05/18 09:30; Admin Dose 1 MG; Start 09/03/18 at 04:20 Pantoprazole (Protonix Iv) 40 mg BID@0600,1800 IV Last administered on 09/05/18 05:12; Admin Dose 40 MG; Start 09/03/18 at 04:25 Acetaminophen (Tylenol Tab) 650 mg Q6H PRN PO MILD PAIN(1-3)OR ELEVATED TEMP Last administered on 09/05/18 02:13; Admin Dose 650 MG; Start 09/04/18 at 09:00 Karen RUDOLPH Sep 05, 2018 09:38
[2018-09-05 13:43] VITALS: BP 136/90; PULSE 91; RESP 18
--- NOTE | 2018-09-05 13:43 | PN ---
Date/Time of Note Date/Time of Note DATE: 09/05/18 TIME: 13:40 Assessment/Plan VTE Prophylaxis Risk score (from Ns)>0 risk: 3 SCD applied (from Ns): Yes Pharmacological prophylaxis: NA/contraindicated Pharm contraindication: surgical contra Lines/Catheters [facility] Type (from [facility]): Peripheral IV Central line still needed: Yes Urinary Cath still in place: No Assessment/Plan Hospital Course Diet progress to mechanical soft, patient is encouraged to get out of bed and ambulate. If patient is able to tolerate diet well anticipate discharge home tomorrow. Assessment/Plan - Possible ileus, resolving - Colon cancer, status post laparoscopic converted to open rectosigmoidectomy with low pelvic anastomosis. - Hypertension. - Dyslipidemia. - Allergic rhinitis. - Obesity with BMI of 36.9 Further recommendations based on clinical course. Plan of care discussed with Dr. Pastor. Result Diagram: 09/05/18 0437 09/05/18 0437 Results 24hrs Laboratory Tests Test 09/05/18 04:37 White Blood Count 11.4 H Red Blood Count 4.23 L Hemoglobin 12.1 L Hematocrit 36.6 L Mean Corpuscular Volume 86.5 Mean Corpuscular Hemoglobin 28.6 L Mean Corpuscular Hemoglobin Concent 33.1 Red Cell Distribution Width 13.9 Platelet Count 332 Mean Platelet Volume 10.6 H Immature Granulocytes % 0.400 Neutrophils % 63.4 Lymphocytes % 21.9 Monocytes % 10.9 Eosinophils % 2.8 Basophils % 0.6 Nucleated Red Blood Cells % 0.0 Immature Granulocytes # 0.040 H Neutrophils # 7.2 Lymphocytes # 2.5 Monocytes # 1.2 H Eosinophils # 0.3 Basophils # 0.1 Nucleated Red Blood Cells # 0.0 Sodium Level 140 Potassium Level 3.3 L Chloride Level 107 Carbon Dioxide Level 24 Anion Gap 9 Blood Urea Nitrogen 8 Creatinine 0.89 Est Glomerular Filtrat Rate mL/min > 60 Glucose Level 112 Calcium Level 8.7 Exam/Review of Systems Exam Vitals Vital Signs Date Temp Pulse Resp B/P (MAP) Pulse Ox O2 O2 Flow FiO2 Time Delivery Rate 09/05/18 98.3 65 18 129/88 97 Room Air 08:02 (102) 09/05/18 2.0 03:50 Intake and Output 09/04/18 09/04/18 09/05/18 1515:00 23:00 07:00 IntakeIntake Total 300 ml 950 ml 950 ml OutputOutput Total 1100 ml 400 ml BalanceBalance -800 ml 550 ml 950 ml Exam Constitutional: alert, oriented Neck: supple Respiratory: clear to auscultation Cardiovascular: nl pulses Gastrointestinal: soft, other (s/p surgery) Musculoskeletal: nl extremities to inspection Extremities: normal pulses Neurological: nl mental status Skin: nl turgor Results Results 24hrs Laboratory Tests Test 09/05/18 04:37 White Blood Count 11.4 H Red Blood Count 4.23 L Hemoglobin 12.1 L Hematocrit 36.6 L Mean Corpuscular Volume 86.5 Mean Corpuscular Hemoglobin 28.6 L Mean Corpuscular Hemoglobin Concent 33.1 Red Cell Distribution Width 13.9 Platelet Count 332 Mean Platelet Volume 10.6 H Immature Granulocytes % 0.400 Neutrophils % 63.4 Lymphocytes % 21.9 Monocytes % 10.9 Eosinophils % 2.8 Basophils % 0.6 Nucleated Red Blood Cells % 0.0 Immature Granulocytes # 0.040 H Neutrophils # 7.2 Lymphocytes # 2.5 Monocytes # 1.2 H Eosinophils # 0.3 Basophils # 0.1 Nucleated Red Blood Cells # 0.0 Sodium Level 140 Potassium Level 3.3 L Chloride Level 107 Carbon Dioxide Level 24 Anion Gap 9 Blood Urea Nitrogen 8 Creatinine 0.89 Est Glomerular Filtrat Rate mL/min > 60 Glucose Level 112 Calcium Level 8.7 Medications Medication Current Medications Hydromorphone HCl (Dilaudid) 0.2 mg Q2H PRN IV .PAIN 1-5; Start 08/31/18 at 14:00 Hydromorphone HCl (Dilaudid) 0.4 mg Q2H PRN IV .PAIN 6-10; Start 08/31/18 at 14:00 Nalbuphine HCl (Nubain) 10 mg Q4H PRN IV .PRURITUS; Start 08/31/18 at 14:00 Ondansetron HCl (Zofran Inj) 4 mg Q6H PRN IV .NAUSEA/VOMITING Last administered on 09/03/18at 09:35; Admin Dose 4 MG; Start 08/31/18 at 14:00 Trimethobenzamide HCl (Tigan) 200 mg Q6H PRN IM .NAUSEA/VOMITING; Start 08/31/18 at 14:00 Naloxone HCl (Narcan) 0.2 mg Q2M PRN IV .RESP RATE; Start 08/31/18 at 14:00 Miscellaneous Information (* Miscellaneous Pharmacy Order) DURAMORPH: 0.1 MG SPI... GIVEN NEURAXIAL XX ; Start 08/31/18 at 14:00 Naloxone HCl (Narcan) 0.2 mg Q2M PRN IV RR 8 BREATHS/MIN OR LESS; Start 08/31/18 at 17:30 Fluticasone Propionate (Flonase 0.05% Nasal) 1 spray DAILY NASAL Last administered on 09/05/18 09:29; Admin Dose 1 SPRAY; Start 09/01/18 at 09:00 Hydralazine HCl (Apresoline) 20 mg Q6H PRN IV >160/95; Start 08/31/18 at 23:00 Diphenhydramine HCl (Benadryl) 50 mg Q6H PRN PO ITCHING Last administered on 09/02/18 06:00; Admin Dose 50 MG; Start 09/01/18 at 05:30 Calcium Carbonate (Tums) 500 mg Q6 PRN PO heartburn Last administered on 9at 02:13; Admin Dose 500 MG; Start 09/01/18 at 23:30 Potassium Chloride/Dextrose/ Sod Cl 1,000 ml @ 100 mls/hr Q10H IV Last administered on 09/05/18 05:13; Admin Dose 100 MLS/HR; Start 09/02/18 at 14:30 Ketorolac Tromethamine (Toradol) 30 mg Q6H PRN IV PAIN LEVEL 1-3 Last administered on 09/05/18 09:30; Admin Dose 30 MG; Start 09/02/18 at 16:30; Stop 09/05/18 at 16:29 Lorazepam (Ativan) 1 mg Q6H PRN IV ANXIETY Last administered on 09/05/18 09:30; Admin Dose 1 MG; Start 09/03/18 at 04:20 Pantoprazole (Protonix Iv) 40 mg BID@0600,1800 IV Last administered on 09/05/18 05:12; Admin Dose 40 MG; Start 09/03/18 at 04:25 Acetaminophen (Tylenol Tab) 650 mg Q6H PRN PO MILD PAIN(1-3)OR ELEVATED TEMP Last administered on 6/4/19at 02:13; Admin Dose 650 MG; Start 09/04/18 at 09:00 ADDIS BACA Sep 05, 2018 13:43
[2018-09-05] MEDS ORDERED: LORAZEPAM 1 MG TAB PO PRN (16:30)
[2018-09-05 20:00] VITALS: BP 133/89; PULSE 89; RESP 18
[2018-09-06 01:35] VITALS: BP 119/68; PULSE 75; RESP 18
[2018-09-06] MEDS: PANTOPRAZOLE 40 MG INJ IV SCH (06:30)
[2018-09-06 07:42] VITALS: BP 143/88; PULSE 73; RESP 15
[2018-09-06] MEDS: CALCIUM CARBONATE 500 MG CHEW TAB PO PRN ×2 (07:56→16:05)
[2018-09-06] MEDS: FLUTICASONE 0.05% 16 GM NAS SPRAY NASAL SCH (07:56)
[2018-09-06] MEDS: ACETAMINOPHEN 325 MG TAB PO PRN ×2 (07:56→16:05)
[2018-09-06] MEDS ORDERED: HYDROCODONE/APAP (5/325) TAB PO PRN ×2 (08:30)
[2018-09-06 14:13] VITALS: BP 129/78; PULSE 77; RESP 16
[2018-09-06] MEDS ORDERED: DOCU-144 PO (16:24)
--- NOTE | 2018-09-06 19:44 | DS ---
Date/Time of Note Date/Time of Note DATE: 09/06/18 TIME: 19:43 Discharge Summary Admission/Discharge Info Admit Date/Time August 31, 2018 at 10:25 Discharge Date/Time Sep 06, 2018 at 17:00 Patient Condition: Stable Hx of Present Illness The patient is a 52-year-old gentleman who was referred to Dr. Werner for guaiac positive stool. The patient also has history of hypertension and dyslipidemia. The patient underwent colonoscopy which revealed biopsy proven rectosigmoid cancer. The patient was referred to Dr. Moya and was brought into hospital today and underwent laparoscopic converted to open rectosigmoidectomy with low pelvic anastomosis, open lysis of adhesions. The patient is being admitted for evaluation and management. The patient denied any chest pain. No shortness of breath. No history of headache, dizziness or syncope. No history of resting leg pain. No history of leg edema. No history of any focal weakness. Hospital Course - Possible ileus, resolved - Colon cancer, status post laparoscopic converted to open rectosigmoidectomy with low pelvic anastomosis by Dr. Moya on 08/31/2018. - Hypertension. - Dyslipidemia. - Allergic rhinitis. - Obesity with BMI of 36.9 Plan of care discussed with Dr. Pastor. Home Meds Active Scripts Docusate Sodium* (Colace*) 100 Mg Capsule, 100 MG PO BID, #60 CAP Prov:ADDIS BACA 09/06/18 Reported Medications Fluticasone Propionate (Flonase Allergy Relief) 9.9 Ml [place].susp, 1 SPRAY NASAL DAILY, #1 BOTTLE TO EACH NOSTRIL 07/11/18 Loratadine* (Loratadine*) 10 Mg Tablet, 10 MG PO DAILY, #30 TAB 04/06/18 Simvastatin* (Zocor*) 20 Mg Tablet, 20 MG PO QHS, #30 TAB 08/11/17 Benazepril Hcl* (Benazepril Hcl*) 20 Mg Tablet, 20 MG PO DAILY, #30 TAB 08/11/17 Hydrochlorothiazide* (Hydrochlorothiazide*) 25 Mg Tab, 25 MG PO DAILY, #30 TAB 08/11/17 Discontinued Reported Medications [Benazepril Daily] No Conflict Check 08/01/18 Carbamide Peroxide* (Debrox*) 6.5% - 15 Ml Drops, 10 DROP BOTH EARS BID for INTO AFFECTED EARS, BOTTLE 07/11/18 Clotrimazole* (Lotrimin*) 1%-30 Gm Cream..g., 1 APPLIC TOP BID, TUB 07/11/18 Acyclovir* (Acyclovir* Oint) 5%-15 Gm Oint, 1 APPLIC TOP 5 TIMES DAILY, #1 TUB 07/11/18 Follow-up Plan Discharge with prescription with [place] left by surgeon, follow-up with Dr. Moya next week. Primary Care Provider [facility] Time spent on discharge: > 30 minutes ADDIS BACA Sep 06, 2018 19:44
== END 2018-09-06 17:00 | disposition home or self-care (01) | DRG 330 ==
LOC: REC 10:25 → MS1 20:05
PROVIDERS: ADMIT Surgery; ATTEND Surgery
PROC: 0DTP0ZZ Resection of Rectum, Open Approach (ICD-10-PCS; 2018-08-31)
PROC: 0DJD4ZZ Inspection of Lower Intestinal Tract, Percutaneous Endoscopic Approach (ICD-10-PCS; 2018-08-31)
PROC: 0DTN0ZZ Resection of Sigmoid Colon, Open Approach (ICD-10-PCS; principal; 2018-08-31 12:30)
DX: C19 Malignant neoplasm of rectosigmoid junction (principal); K56.7 Ileus, unspecified; I10 Essential (primary) hypertension; E78.5 Hyperlipidemia, unspecified; Z53.31 Laparoscopic surgical procedure converted to open procedure; J30.9 Allergic rhinitis, unspecified; E66.9 Obesity, unspecified; Z68.36 Body mass index [BMI] 36.0-36.9, adult; Z88.0 Allergy status to penicillin
CPT/HCPCS: 74019; 80048; 80053; 85025; 88309; 93005; C9113; J0131; J0690; J0744; J1100; J1170; J1885; J2060; J2175; J2250; J2274; J2405; J2710; J3010; J3480; J7030; J7120; Q9968